=== PATIENT | female | born 1940 | race Caucasian/White ===

== ENCOUNTER 2019-04-10 10:21 | Inpatient (IN) | payer OTHER, BC ==
--- NOTE | 2019-04-10 14:04 | R.PREADM ---
SCREENING DATE AND TIME 04/10/2019 11:39 (LOOP TACKER) ANTICIPATED REHAB ADMISSION DATE 04/12/2019 REFERRING FACILITY [facility] REFERRAL DATE AND TIME 04/10/2019 11:39 (LOOP TACKER) ACUTE ADMIT DATE 04/07/2019 Previous Rehabilitation(s): No. REFERRING PHYSICIAN Ryland Feldman REHAB FACILITY [facility] CLINICAL LIAISON Ana Luisa German PHYSICIAN REVIEWER Dr. Vance Vega M.D. [id number] [id number] NAME SHAYY LEAL [address]ESS [address] [place]IP [address] DATE OF 1940 AGE 78 SSN# [id number] GENDER female MARITAL STATUS RACE white ADMIT FROM 02 - [facility] PRE-HOSPITAL LIVING SETTING 01 - Home (private home/apt. board/care, assisted living, shelter, transitional living) HOME TYPE AND DETAILS Type of home: single family house # of steps within the residence: 0 # of levels in the residence: 1 # of steps to enter the residence: 0 PRE-HOSPITAL LIVING WITH Alone FAMILY SUPPORT Yes PRIMARY FAMILY CONTACT NAME Nissa Gnun PRIMARY FAMILY CONTACT PHONE PHONE PRIMARY FAMILY CONTACT ON ADM.? no IS PRIMARY FAMILY CONTACT AUTH. REP.? no 1ST EMERGENCY CONTACT Nissa Gunn 1ST CONTACT PHONE PHONE 1ST CONTACT ON ADM. no IS 1ST CONTACT AUTH. REP.? no PHONE 2ND CONTACT ON ADM.? no PATIENT EMPLOYMENT STATUS Retired (for age) PATIENT EMPLOYER No Employer PAYOR INFORMATION: 1ST PAYOR NAME MEDICARE 1ST PAYOR PHONE [phone] 1ST PAYOR INJURY/ILLNESS DUE TO ACCIDENT? No ANOTHER GREEN PARTY RESPONSIBLE? No PRIMARY REHAB/ACUTE DIAGNOSIS: .Osteoarthritis, Right Hip ONSET DATE 04/07/2019 REHAB IMPAIRMENT CATEGORY (ALEX): 12 Osteoarthritis (Osteo) does NOT meet 60% rule PRIMARY DIAGNOSIS-RELATED SURGERIES: Right Total Hip Replacement COMORBID REHAB/ACUTE DIAGNOSES: - N/A HTN Hypothyroidism IBS Insomnia Osteoporosis Osteoarthritis Seasonal Allergy MRSA INTERVENTIONS: - Osteoporosis Medications Safety - Osteoarthritis Energy conservation Exercise Joint Protection Medications Pain management RISK FOR COMPLICATIONS: - Osteoporosis Falls Fractures (pathological) - Osteoarthritis Falls SUMMARY OF ACUTE HOSPITALIZATION: Pt. is a 78 yo Right-handed white female. On 04/07/2019 she was admitted to [facility] with diagnosis .Osteoarthritis, Right Hi p. Her impairment category is Arthritis 06 - Osteoarthritis (06.2). Pre-morbidly, Pt. was independent/mod-I in Locomotion, Safety Awareness, Balance, Social Cognition, T ransfers Control, Sphincter Control, Self-Care, Communication, and Endurance; and she had good Locomo tion, Safety Awareness, Balance, Social Cognition, Transfers Control, Sphincter Control, Self-Care, C ommunication, and Endurance. Currently, she has deficits of Locomotion, Safety Awareness, Balance, Social Cognition, Transfers Con trol, Self-Care, and Endurance. Pt. is now referred to [facility] for acute in-patient rehabilitation in order to maximize patient's functional independence in activities of daily living, strength, ROM, and mobi lity. Patient has realistic goal of being discharged at assistance level 6-Saida to reside at Home with Fam estefani/Relatives. Shayy Leal is an 78 year old female that lives alone in a single juan home. She was independent with ADLs and IADLs. On 04/07/2019, patient was scheduled to have Right total hip replacement because of worsening hip pain and was admitted to [facility] and treated. She is now medically stable but in need of 24-h our nursing, doctor supervision and oversite while receiving participate in 3hours of therapy a day/15 hours per week and receive care with an intensive interdisciplinary approach. PAST MEDICAL HISTORY HTN Hypothyroidism IBS Insomnia MRSA Osteoarthritis Osteoporosis Seasonal Allergy PAST SURGICAL HISTORY: TONSILLECTOMY HYSTERECTOMY GALL BLADDER REMOVAL Cyst removal HERNIA REPAIR MEDICATION ALLERGIES: Erythromycin Levofloxacin Penicillin Meperidine HCl Sulfa ENVIRONMENTAL ALLERGIES: Shellfish - Substance Allergies None Known - Other Allergies None Known CODE STATUS: Full code WEIGHT/HEIGHT/BMI: WEIGHT 129.8 lbs HEIGHT 5' 5" BMI 21.5 DIET: - Diet Type Regular - Diet - Solid Texture Regular - Diet - Liquid Texture Regular - Tube Feed N/A SKIN DIAGRAM: Incision on Right upper leg; extent - small; stage - NS(Not Stageable). Treatment - Per Physician's O rders. REVIEW OF SYSTEMS: - Gen Alert and awake Lying in bed No apparent distress Oriented to: person, time, and place - Vital Signs Temperature: 98.0 F SBP/DBP: 131/64 Pulse: 81 Resp: 18 Vital signs stable, afebrile - CVS RRR VITAL SIGNS Temperature: 98.0 F SBP/DBP: 131/64 Pulse: 81 Resp: 18 Vital signs stable, afebrile MEDICATIONS/TREATMENT: Other- See attached MAR (Medication Administration Record). CURRENT SPHINCTER CONTROL: Pre-hospital bladder status: continent # of bladder accidents in the last 7 days prior to screenin Pre-hospital bowel status: continent # of bowel accidents in the last 7 days prior to screenin Last Bowel Movement Date: CURRENT LOCOMOTION STATUS: distance traveled in wheelchair 0 feet distance walked 5 feet DETAILED CURRENT FUNCTIONAL STATUS: - Bladder accident frequency: Ind - No accidents in the past 7 days - Bowel accident frequency: Ind - No accidents in the past 7 days - Walking score based on distance walked: 0(N/A) score based on distance walked: 1(<=50ft) - Wheelchair score based on distance traveled: 0(N/A) QI SCORES: - Self-Care A. Eating 05-Setup or clean-up assistance B. Oral hygiene 05-Setup or clean-up assistance C. Toileting hygiene 03-Partial/moderate assistance E. Shower/bathe self 03-Partial/moderate assistance F. Upper body dressing 04-Supervision or touching assistance G. Lower body dressing 02-Substantial/maximal assistance H. Putting on/taking off footwear 02-Substantial/maximal assistance - Mobility A. Roll left and right 03-Partial/moderate assistance B. Sit to lying 03-Partial/moderate assistance C. Lying to sitting on side of bed 03-Partial/moderate assistance D. Sit to stand 03-Partial/moderate assistance E. Chair/kcf-hy-espae transfer 03-Partial/moderate assistance F. Toilet transfer 03-Partial/moderate assistance G. Car transfer 88-Not attempted due to medical condition or safety concerns I. Walk 10 feet 02-Substantial/maximal assistance J. Walk 50 feet with two turns 88-Not attempted due to medical condition or safety concerns K. Walk 150 feet 88-Not attempted due to medical condition or safety concerns L. Walking 10 feet on uneven surfaces 88-Not attempted due to medical condition or safety concerns M. 1 step (curb) 88-Not attempted due to medical condition or safety concerns N. 4 steps 88-Not attempted due to medical condition or safety concerns O. 12 steps 88-Not attempted due to medical condition or safety concerns P. Picking up object 88-Not attempted due to medical condition or safety concerns R. Wheel 50 feet with two turns 88-Not attempted due to medical condition or safety concerns S. Wheel 150 feet 88-Not attempted due to medical condition or safety concerns - Bladder and Bowel Bladder continence 0-Always continent Bowel continence 0-Always continent - Endurance Poor - Balance Poor - Safety Awareness Fair CURRENT FUNC. DEFICITS: Self-Care, Mobility, Endurance, Balance, and Safety Awareness CURRENT / PREVIOUS ASSISTIVE DEVICES: 3-in-1 Commode [facility] Bed Raised Toilet Rolling Walker Shower Chair Straight Cane Tub Bench Wheelchair HISTORY OF FALLS. HAS THE PATIENT HAD TWO OR MORE FALLS IN THE PAST YEAR OR ANY FALL WITH INJURY IN T HE PAST YEAR?: No PRIOR SURGERY. DID THE PATIENT HAVE MAJOR SURGERY DURING THE 100 DAYS PRIOR TO ADMISSION?: No THERAPY NOTES FROM ACUTE CARE: Attached. SPECIAL NEEDS: - Safety Concerns Skin breakdown precautions needed due to skin breakdown risk PATIENT NEEDS ACTIVE AND ONGOING THERAPEUTIC INTERVENTION OF MULTIPLE THERAPY DISCIPLINES, INCLUDING: - Orthotics/Prosthetics Orthotic Evaluation. Splinting/Casting. - Dietary and Nutrition Adequate Nutrition. Nutritional Education. Nutritional Supplements. PATIENT NEEDS CLOSE MEDICAL SUPERVISION BY A REHABILITATION PHYSICIAN FOR: Coordination of Treatment Team Medical and Co-Morbidity Management Post-Op Complications Sleep Problems Wound Care PATIENT REQUIRES 24X7 REHAB NURSING FOR MEDICAL AND FUNCTIONAL MGT. OF THE FOLLOWING DEFICITS: Disease Management Medication Management Patient/Family Education Providing Safe Environment Skin Integrity PATIENT REQUIRES INTENSIVE, COORDINATED INTERDISCIPLINARY APPROACH TO REHAB: Arranging Home Equipment/Services Discharge Planning Family Intervention/Training Solution Designer/Case Management PATIENT REHAB POTENTIAL: Shayy LEAL is able and expected to receive 3 hours of individualized therapy daily on at least 5 o f every 7 days Shayy LEAL's prognosis for significant practical improvement within a reasonable period of time ap pears Good Expected level of measurable improvement will be of a practical value to Shayy LEAL's functional c apacity or adaptations to impairments Has a viable Discharge Plan Medically appropriate; condition is sufficiently stable to participate in intensive rehab program DISCHARGE PLAN: - Estimated Length of Stay (days) 13. - Consensus on plan Discharge plan has been discussed with primary caregiver. Patient/Family is in agreement with the john n. Primary caregiver is in agreement with the plan. - Patient/Family Goals Return home with assistance. - Planned Living Setting Upon Discharge Home, to live with Family/Relatives. Transitional Living. Primary caregiver: Pt self. RECOMMENDED CARE LEVEL: IRF RECOMMENDATION DETAILS: Recommended Admission to Comprehensive Rehabilitation Program to Increase Functional [place] SCREENER'S COMPLETENESS CONFIRMATION: - Screening Confirmation The patient data collection on this preadmission screening form is finished PHYSICIANS REVIEW AND ADMISSION DETERMINATION Admit - Based on my review of the Pre-Admission Screening results, in my medical judgment and experie nce, I concur with the findings and recommend admission to [facility], as this patient requires an IRF level of care. SIGNATURE PANEL: Clinical Liaison - [electronically] signed by Ana Luisa German on 04/10/2019 at 12:28 (LOOP TACKER) Physician Reviewer - [electronically] signed by Dr. Vance Vega M.D. on 04/10/2019 at 14:03 (LOOP TACKER )
[2019-04-10] MEDS ORDERED: CETIRIZINE HCL 5 MG TABLET PO PRN (17:04)
[2019-04-10] MEDS ORDERED: DIPHENHYDRAMINE 25 MG TAB/CAP PO PRN (17:09)
[2019-04-10] MEDS ORDERED: SIMETHICONE 80 MG TAB PO PRN (17:09)
[2019-04-10] MEDS ORDERED: DICYCLOMINE HCL 10 MG CAP PO PRN (17:09)
[2019-04-10] MEDS: ENOXAPARIN 40 MG/0.4 ML SQ SCH (18:00)
[2019-04-10] MEDS: HYDROCODONE/APAP 7.5/325 MG TAB PO PRN (18:58)
[2019-04-10] MEDS ORDERED: CIPROFLOXACIN HCL 500 MG TAB PO SCH (20:00)
[2019-04-10] MEDS: GABAPENTIN 100 MG CAP PO SCH (20:32)
[2019-04-10] MEDS: FERROUS SULFATE 325 MG TAB PO SCH ×2 (20:32→21:00)
[2019-04-10] MEDS: DOCUSATE NA 100 MG CAP PO PRN (20:33)
[2019-04-10] MEDS: ALPRAZOLAM 0.25 MG TABLET PO SCH (20:33)
[2019-04-11 01:27] LABS: Urine Appearance CLEAR; Urine Bilirubin NEGATIVE (NEG); Urine Blood NEGATIVE (NEG); Urine Color YELLOW; Urine Glucose NEGATIVE (NEG); Urine Protein NEGATIVE (NEG); Urine Specific Gravity <=1.005 (1.005-1.030); Urine Urobilinogen 0.2 mg/dL (0.2-1.0)
[2019-04-11 02:00] LABS: Urine Bacteria <20 /HPF (<20); Urine Culture Reflex Order NOT NEEDED; Urine RBC NONE SEEN /HPF (NONE SEEN)
[2019-04-11] MEDS: LEVOTHYROXINE SOD 0.075 MG TAB PO SCH (06:44)
[2019-04-11 06:48] LABS: Absolute Lymphocytes (CBC) 1.3 K/uL (0.7-4.9); Basophils % 0.6 % (0-1.3); Hematocrit 28.9 % (36.0-45.0); Lymphocytes % 15.5 % (15.3-44.8); MPV 7.2 fL (7.6-11.3)
[2019-04-11 07:13] LABS: Albumin 2.2 g/dL (3.4-5.0); BUN Blood Urea Nitrogen 7 mg/dL (7-18); Bicarbonate 27 mmol/L (21-32); Glucose Level 85 mg/dL (74-106); Magnesium 2.4 mg/dL (1.8-2.4); Potassium 4.3 mmol/L (3.5-5.1); Prealbumin 8.4 mg/dL (20-40); Sodium Level 139 mmol/L (136-145)
[2019-04-11] MEDS ORDERED: RALOXIFENE HCL 60 MG TAB PO SCH (08:00)
[2019-04-11] MEDS: HYDROCODONE/APAP 7.5/325 MG TAB PO PRN ×3 (08:22→21:49)
[2019-04-11] MEDS: LACTOBACILLUS/ACIDOPHILUS TAB PO SCH (08:24)
[2019-04-11] MEDS: AMLODIPINE 5 MG TAB PO SCH (08:24)
[2019-04-11] MEDS: GABAPENTIN 100 MG CAP PO SCH ×2 (08:24→20:37)
[2019-04-11] MEDS: ENOXAPARIN 40 MG/0.4 ML SQ SCH (08:24)
[2019-04-11] MEDS: PANTOPRAZOLE 40MG TABLET PO SCH ×2 (08:25→17:23)
[2019-04-11] MEDS: FOLBIC 1 TAB PO SCH (08:25)
[2019-04-11] MEDS: MULTIVITAMIN TAB PO SCH (08:25)
[2019-04-11] MEDS: FERROUS SULFATE 325 MG TAB PO SCH (08:27)
[2019-04-11] MEDS: CALCIUM CARB 500MG/VIT D 200 IU TAB PO SCH (08:27)
[2019-04-11] MEDS: DOCUSATE NA 100 MG CAP PO PRN (10:10)
[2019-04-11] MEDS: CODEINE 30MG/APAP 300MG TAB PO PRN (10:10)
[2019-04-11] MEDS ORDERED: MAGNESIUM HYDROXIDE 8% 30 ML PO ONE (12:00)
--- NOTE | 2019-04-11 16:14 | FAST ---
ENCOUNTER DATE AND TIME: 04/11/2019 08:00 (MAKEUP INSTRUCTOR) NAME FARZAD CAVAZOS DATE OF : 1940 DATE OF ADMISSION: 04/10/2019 15:46 (MAKEUP INSTRUCTOR) PHONE: AGE: 78 N# [id number] GENDER: Female ENCOUNTER PHYSICIAN: Dr. Vance Vega M.D. ADMISSION DIAGNOSIS: - Arthritis 06 - Osteoarthritis (06.2) .Osteoarthritis, Right Hip. EATING: EATING - STEP 1: Does the patient complete the activity by him/herself with no assistance (physical, verbal/nonverbal cueing, setup/clean-up)? Yes. 1. [id number] ADMISSION PERFORMANCE: Independent CODE: 06 ORAL HYGIENE: ORAL HYGIENE - STEP 1: Does the patient complete the activity by him/herself with no assistance (physical, verbal/nonverbal cueing, setup/clean-up)? Yes. 1. [id number] ADMISSION PERFORMANCE: Independent CODE: 06 TOILETING HYGIENE: Not assessed/no information CODE: - BATHING: Not attempted due to medical condition or safety concerns CODE: 88 DRESSING - UPPER BODY: DRESSING - UPPER BODY - STEP 1: Does the patient complete the activity by him/herself with no assistance (physical, verbal/nonverbal cueing, setup/clean-up)? No. DRESSING - UPPER BODY - STEP 2: Does the patient need only setup/clean-up assistance from one helper? Yes. 1. [id number] ADMISSION PERFORMANCE: Setup or clean-up assistance CODE: 05 DRESSING - LOWER BODY: DRESSING - LOWER BODY - STEP 1: Does the patient complete the activity by him/herself with no assistance (physical, verbal/nonverbal cueing, setup/clean-up)? No. DRESSING - LOWER BODY - STEP 2: Does the patient need only setup/clean-up assistance from one helper? No. DRESSING - LOWER BODY - STEP 3: Does the patient need only verbal/nonverbal cueing or touching/steadying/contact guard assistance fro m one helper? No. DRESSING - LOWER BODY - STEP 4: Does the patient need physical assistance - for example lifting or trunk support from one helper - wi th the helper providing less than half of the effort? No. DRESSING - LOWER BODY - STEP 5: Does the patient need physical assistance - for example lifting or trunk support from one helper - wi th the helper providing more than half of the effort? No. DRESSING - LOWER BODY - STEP 6: Does the helper provide all of the effort? OR Is the assistance of two or more helpers required to co mplete the activity? Yes. 1. [id number] ADMISSION PERFORMANCE: Dependent CODE: 01 PUTTING ON/TAKING OFF FOOTWEAR: FOOTWEAR - STEP 1: Does the patient complete the activity by him/herself with no assistance (physical, verbal/nonverbal cueing, setup/clean-up)? No. FOOTWEAR - STEP 2: Does the patient need only setup/clean-up assistance from one helper? No. FOOTWEAR - STEP 3: Does the patient need only verbal/nonverbal cueing or touching/steadying/contact guard assistance fro m one helper? No. FOOTWEAR - STEP 4: Does the patient need physical assistance - for example lifting or trunk support from one helper - wi th the helper providing less than half of the effort? No. FOOTWEAR - STEP 5: Does the patient need physical assistance - for example lifting or trunk support from one helper - wi th the helper providing more than half of the effort? No. FOOTWEAR - STEP 6: Does the helper provide all of the effort? OR Is the assistance of two or more helpers required to co mplete the activity? Yes. 1. [id number] ADMISSION PERFORMANCE: Dependent CODE: 01 DOES THE PATIENT USE A WHEELCHAIR/SCOOTER? CODE: EXPR INDICATE THE TYPE OF WHEELCHAIR/SCOOTER USED: CODE: EXPR INDICATE THE TYPE OF WHEELCHAIR/SCOOTER USED: CODE: EXPR BLADDER AND BOWEL: CODE: EXPR CODE: EXPR SIGNATURE PANEL: The following modified sections: 1. [id number] Admission Performance, 1. [id number] Admission Performance, 1. [id number] Admission Performance, 1. [id number] Admission Performance, 1. [id number] Admission Performance were [electronically] signed by hSilpa Ruffin OT on SatApr 11 2019 16:13:32 GMT-0600 ([facility])
[2019-04-11] MEDS: RIVAROXABAN 10 MG TABLET PO SCH (16:58)
[2019-04-11] MEDS: DOCUSATE NA/SENNA CONC 1 TAB PO SCH (20:37)
[2019-04-11] MEDS: ALPRAZOLAM 0.25 MG TABLET PO SCH (20:37)
--- NOTE | 2019-04-11 22:10 | HP ---
Date of Admission: 04/11/2019 Patient was seen this morning for this hospital admission. Reason For Admission: For rehab therapy after hip surgery. History Of Present Illness: 78-year-old female patient who had right hip replacement surgery done in [place] on Saturday of this week and she was brought in to our rehab floor yesterday evening for this rehab admission. Patient's postoperative course remained remarkable for need for blood transfusion and antibiotic, Cipro, probably for urinary tract infection. She did have a Antonio catheter after surgery, which was removed within a day or so as she tells me. Her last bowel movement was on Saturday, which was day before surgery. After that , she has not had any bowel movement. Denies any abdominal pain, nausea, vomiting. No blood in stool. No blood in urine. No dysuria. Her pain is under good control with pain medication. Allergies: AZITHROMYCIN CAUSING RASH, ERYTHROMYCIN CAUSING RASH, PENICILLIN CAUSING RASH, SULFA CAUSING RASH, FOSAMAX AND ACTONEL CAUSING STOMACH UPSET, AND DEMEROL, HER ARMS TURN RED. Medications: Current medication list reviewed. At home, she takes alprazolam 0.25 mg at bedtime as needed for sleep, Evista 60 mg p.o. daily, omeprazole 40 mg p.o. daily, levothyroxine 75 mcg p.o. daily, dicyclomine 10 mg 1 capsule every 6 hours as needed for stomach cramps, Caltrate plus D 1 tablet by mouth 2 times a day, Folbic 1 tablet by mouth daily. Review of Systems: Musculoskeletal: Hip pain. GI: Constipation. All other systems reviewed and negative. 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 Past Surgical History: Significant for tonsillectomy, thyroidectomy, hiatal hernia repair, cholecystectomy, appendectomy, hysterectomy. Family History: Father had lymphoma. Mother, hypertension and osteoporosis. Brother, coronary artery disease and diabetes. Sister with hypertension. Social History: Negative for smoking and alcohol use. Physical Examination: Vital Signs: This morning, temperature 98.2, respiratory rate 16, blood pressure 140/51, oxygen saturation 100%, height 5 feet 5 inches, weight 147 pounds. General: Awake, alert, oriented, not in distress. HEENT: Head atraumatic, normocephalic. Conjunctivae nonerythematous. Sclerae white. Mouth, no thrush or edema noted. Ears/Nose, no mass, lesion, discharge noted. Neck: Supple. No JVD, lymph nodes, bruit, thyromegaly noted. Lungs: Bilateral good equal air entry. Clear to auscultation. No rhonchi. No rales. Heart: Normal heart sounds, no murmur or gallop. Abdomen: Soft, bowel sounds normal. No guarding, rigidity, tenderness, mass, hepatosplenomegaly, distention, or bruit noted. Extremities: No leg edema. No calf tenderness. Skin: No rash, ulcer, cellulitis. Lymphatics: No lymph node enlargement in neck, supraclavicular, infraclavicular region. Neuro: No focal neurological deficit. Chest: Unremarkable. External Genitalia: Deferred. Rectal: Deferred. Laboratory Data: White count 8.4, hemoglobin 9.9, platelets 248. Sodium 139, potassium 4.3, chloride 108, bicarb 27, BUN 7, creatinine 0.61, glucose 85, magnesium 2.4. Impression: 1. Anemia due to acute blood loss. 2. Constipation. 3. Hypothyroidism, postsurgical. 4. Gastroesophageal reflux disease. 5. Diverticulosis. 6. Osteoarthritis, multiple sites. 7. Osteoporosis. 8. Primary insomnia. 9. Hyperlipidemia. Plan: Admit patient to hospital for further evaluation and management of this problem. Patient is going to be admitted to rehab floor. We will consult Dr. Vega, who will manage patient's physical therapy. We will continue medications per order. Patient takes Evista at home, which I will discontinue it at present time because of less than normal activity in the hospital increases risk of blood clot and continuation of Evista on top of that will increase risk of blood clot further, so it will be best to discontinue Evista while in the hospital. After her discharge from the hospital, she will be allowed to restart it. DVT prophylaxis will be given using Xarelto 10 mg daily as of this evening and pain medications will be continued. We will give Senokot -S 2 tablets by mouth 2 times a day and give 1 dose of milk of magnesia today. Patient reported that she was getting iron supplement in [place] and she could not tolerate. It caused lot of stomach upset, pain, and nausea. So, we will discontinue iron supplement and if necessary, consider IV iron therapy depending on her hemoglobin test results, which we will monitor while in the hospital here. CELSA/SABRINA Voice ID: [id number] MTDD
[2019-04-12] MEDS: PANTOPRAZOLE 40MG TABLET PO SCH ×2 (06:30→16:27)
[2019-04-12] MEDS: LEVOTHYROXINE SOD 0.075 MG TAB PO SCH (06:30)
[2019-04-12] MEDS: HYDROCODONE/APAP 7.5/325 MG TAB PO PRN ×2 (08:17→19:08)
[2019-04-12] MEDS: MULTIVITAMIN TAB PO SCH (08:18)
[2019-04-12] MEDS: DOCUSATE NA/SENNA CONC 1 TAB PO SCH ×2 (08:18→21:28)
[2019-04-12] MEDS: AMLODIPINE 5 MG TAB PO SCH (08:19)
[2019-04-12] MEDS: LACTOBACILLUS/ACIDOPHILUS TAB PO SCH (08:19)
[2019-04-12] MEDS: CALCIUM CARB 500MG/VIT D 200 IU TAB PO SCH (08:20)
[2019-04-12] MEDS: GABAPENTIN 100 MG CAP PO SCH ×2 (08:20→21:28)
[2019-04-12] MEDS: FOLBIC 1 TAB PO SCH (08:20)
[2019-04-12] MEDS ORDERED: BISACODYL 10 MG RECTAL SUPP PR ONE (16:00)
[2019-04-12] MEDS: RIVAROXABAN 10 MG TABLET PO SCH (16:27)
[2019-04-12] MEDS: ALPRAZOLAM 0.25 MG TABLET PO SCH (21:28)
[2019-04-13] MEDS: PANTOPRAZOLE 40MG TABLET PO SCH ×2 (07:04→16:16)
[2019-04-13] MEDS: LEVOTHYROXINE SOD 0.075 MG TAB PO SCH (07:04)
[2019-04-13] MEDS: CALCIUM CARB 500MG/VIT D 200 IU TAB PO SCH (08:00)
[2019-04-13] MEDS: LACTOBACILLUS/ACIDOPHILUS TAB PO SCH (08:33)
[2019-04-13] MEDS: AMLODIPINE 5 MG TAB PO SCH (08:34)
[2019-04-13] MEDS: MULTIVITAMIN TAB PO SCH (08:34)
[2019-04-13] MEDS: FOLBIC 1 TAB PO SCH (08:34)
[2019-04-13] MEDS: HYDROCODONE/APAP 7.5/325 MG TAB PO PRN ×3 (08:35→16:16)
[2019-04-13] MEDS: DOCUSATE NA/SENNA CONC 1 TAB PO SCH ×2 (08:35→20:47)
[2019-04-13] MEDS: GABAPENTIN 100 MG CAP PO SCH ×2 (09:45→20:46)
--- NOTE | 2019-04-13 16:01 | FAST ---
SHIFT START DATE/TIME: 04/13/2019 07:00 (COMMAND AND CONTROL) SHIFT END DATE/TIME: 04/13/2019 19:00 (COMMAND AND CONTROL) NAME FARZAD CAVAZOS DATE OF : 1940 DATE OF ADMISSION: 04/10/2019 15:46 (COMMAND AND CONTROL) PHONE: AGE: 78 N# [id number] GENDER: Female ENCOUNTER PHYSICIAN: Dr. Vance Vega M.D. ADMISSION DIAGNOSIS: - Arthritis 06 - Osteoarthritis (06.2) .Osteoarthritis, Right Hip. EATING: EATING - STEP 1: Does the patient complete the activity by him/herself with no assistance (physical, verbal/nonverbal cueing, setup/clean-up)? Yes. 1. [id number] ADMISSION PERFORMANCE: Independent CODE: 06 ORAL HYGIENE: ORAL HYGIENE - STEP 1: Does the patient complete the activity by him/herself with no assistance (physical, verbal/nonverbal cueing, setup/clean-up)? Yes. 1. [id number] ADMISSION PERFORMANCE: Independent CODE: 06 TOILETING HYGIENE: TOILETING HYGIENE - STEP 1: Does the patient complete the activity by him/herself with no assistance (physical, verbal/nonverbal cueing, setup/clean-up)? No. TOILETING HYGIENE - STEP 2: Does the patient need only setup/clean-up assistance from one helper? No. TOILETING HYGIENE - STEP 3: Does the patient need only verbal/nonverbal cueing or touching/steadying/contact guard assistance fro m one helper? Yes. 1. [id number] ADMISSION PERFORMANCE: Supervision or touching assistance CODE: 04 BATHING: Not assessed/no information CODE: - DRESSING - UPPER BODY: Not assessed/no information CODE: - DRESSING - LOWER BODY: Not assessed/no information CODE: - PUTTING ON/TAKING OFF FOOTWEAR: FOOTWEAR - STEP 1: Does the patient complete the activity by him/herself with no assistance (physical, verbal/nonverbal cueing, setup/clean-up)? No. FOOTWEAR - STEP 2: Does the patient need only setup/clean-up assistance from one helper? No. FOOTWEAR - STEP 3: Does the patient need only verbal/nonverbal cueing or touching/steadying/contact guard assistance fro m one helper? No. FOOTWEAR - STEP 4: Does the patient need physical assistance - for example lifting or trunk support from one helper - wi th the helper providing less than half of the effort? Yes. 1. [id number] ADMISSION PERFORMANCE: Partial/moderate assistance CODE: 03 SIT TO LYING: SIT TO LYING - STEP 1: Does the patient complete the activity by him/herself with no assistance (physical, verbal/nonverbal cueing, setup/clean-up)? No. SIT TO LYING - STEP 2: Does the patient need only setup/clean-up assistance from one helper? No. SIT TO LYING - STEP 3: Does the patient need only verbal/nonverbal cueing or touching/steadying/contact guard assistance fro m one helper? Yes. 1. [id number] ADMISSION PERFORMANCE: Supervision or touching assistance CODE: 04 LYING TO SITTING: LYING TO SITTING ON SIDE OF BED - STEP 1: Does the patient complete the activity by him/herself with no assistance (physical, verbal/nonverbal cueing, setup/clean-up)? No. LYING TO SITTING ON SIDE OF BED - STEP 2: Does the patient need only setup/clean-up assistance from one helper? No. LYING TO SITTING ON SIDE OF BED - STEP 3: Does the patient need only verbal/nonverbal cueing or touching/steadying/contact guard assistance fro m one helper? Yes. 1. [id number] ADMISSION PERFORMANCE: Supervision or touching assistance CODE: 04 SIT TO STAND: SIT TO STAND - STEP 1: Does the patient complete the activity by him/herself with no assistance (physical, verbal/nonverbal cueing, setup/clean-up)? No. SIT TO STAND - STEP 2: Does the patient need only setup/clean-up assistance from one helper? No. SIT TO STAND - STEP 3: Does the patient need only verbal/nonverbal cueing or touching/steadying/contact guard assistance fro m one helper? Yes. 1. [id number] ADMISSION PERFORMANCE: Supervision or touching assistance CODE: 04 TRANSFERS: BED, CHAIR: CHAIR/[id number] TRANSFER - STEP 1: Does the patient complete the activity by him/herself with no assistance (physical, verbal/nonverbal cueing, setup/clean-up)? No. CHAIR/[id number] TRANSFER - STEP 2: Does the patient need only setup/clean-up assistance from one helper? No. CHAIR/[id number] TRANSFER - STEP 3: Does the patient need only verbal/nonverbal cueing or touching/steadying/contact guard assistance fro m one helper? Yes. 1. [id number] ADMISSION PERFORMANCE: Supervision or touching assistance CODE: 04 TRANSFER TOILET: TOILET TRANSFER - STEP 1: Does the patient complete the activity by him/herself with no assistance (physical, verbal/nonverbal cueing, setup/clean-up)? No. TOILET TRANSFER - STEP 2: Does the patient need only setup/clean-up assistance from one helper? No. TOILET TRANSFER - STEP 3: Does the patient need only verbal/nonverbal cueing or touching/steadying/contact guard assistance fro m one helper? Yes. 1. [id number] ADMISSION PERFORMANCE: Supervision or touching assistance CODE: 04 TRANSFERS: CAR: Not assessed/no information CODE: - WALK 10 FEET: Not assessed/no information CODE: - 1 STEP (CURB): Not assessed/no information CODE: - PICKING UP OBJECT: Not assessed/no information CODE: - DOES THE PATIENT USE A WHEELCHAIR/SCOOTER? Q1. DOES THE PATIENT USE A WHEELCHAIR/SCOOTER?: Yes CODE: 1 WHEEL 50 FEET WITH TWO TURNS: WHEEL 50 FEET WITH TWO TURNS - STEP 1: Does the patient complete the activity by him/herself with no assistance (physical, verbal/nonverbal cueing, setup/clean-up)? No. WHEEL 50 FEET WITH TWO TURNS - STEP 2: Does the patient need only setup/clean-up assistance from one helper? No. WHEEL 50 FEET WITH TWO TURNS - STEP 3: Does the patient need only verbal/nonverbal cueing or touching/steadying/contact guard assistance fro m one helper? Yes. 1. [id number] ADMISSION PERFORMANCE: Supervision or touching assistance CODE: 04 INDICATE THE TYPE OF WHEELCHAIR/SCOOTER USED: RR1. INDICATE THE TYPE OF WHEELCHAIR/SCOOTER USED.: Manual CODE: 1 WHEEL 150 FEET: Not assessed/no information CODE: - INDICATE THE TYPE OF WHEELCHAIR/SCOOTER USED: SS1. INDICATE THE TYPE OF WHEELCHAIR/SCOOTER USED.: Manual CODE: 1 BLADDER AND BOWEL: H350. BLADDER CONTINENCE (3-DAY ASSESSMENT PERIOD): Always continent (no documented incontinence) CODE: 0 H400. BOWEL CONTINENCE (3-DAY ASSESSMENT PERIOD): Always continent CODE: 0 SIGNATURE PANEL: The following modified sections: 1. [id number] Admission Performance, 1. [id number] Admission Performance, 1. PO1753C Admission Performance, 1. OO8622h Admission Performance, 1. MA7536o Admission Performance, 1. [id number] Admission Performance, 1. BD5139B Admission Performance, 1. FR5201Z Admission Performance , 1. LL2563S Admission Performance, 1. [id number] Admission Performance, Q1. Does the patient use a whee lchair/scooter?, 1. [id number] Admission Performance, RR1. Indicate the type of wheelchair/scooter used. , Code, SS1. Indicate the type of wheelchair/scooter used., H350. Bladder Continence (3-day assessmen t period), H400. Bowel Continence (3-day assessment period) were [electronically] signed by Sera quick, C.N.AJesus on SatApr 13 2019 16:00:08 T-0600 (Central Standard Time)
[2019-04-13] MEDS: RIVAROXABAN 10 MG TABLET PO SCH (16:15)
--- NOTE | 2019-04-13 17:11 | R.HP ---
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 board/care, assisted living, jail, transitional living) PRE-HOSPITAL LIVING WITH Alone ENCOUNTER PHYSICIAN: Dr. Vance Vega M.D. 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 is a 78 yo Right-handed white female. On 04/07/2019 she was admitted to [facility] with diagnosis .Osteoarthritis, Right Hi p. Her impairment category is Arthritis 06 - Osteoarthritis (06.2). Pre-morbidly, Pt. was independent/mod-I in Locomotion, Safety Awareness, Balance, Social Cognition, T ransfers Control, Sphincter Control, Self-Care, Communication, and Endurance; and she had good Locomo tion, Safety Awareness, Balance, Social Cognition, Transfers Control, Sphincter Control, Self-Care, C ommunication, and Endurance. Currently, she has deficits of Locomotion, Safety Awareness, Balance, Social Cognition, Transfers Con trol, Self-Care, and Endurance. Pt. is now referred to [facility] for acute in-patient rehabilitation in order to maximize patient's functional independence in activities of daily living, strength, ROM, and mobi lity. Patient has realistic goal of being discharged at assistance level 6-Saida to reside at Home with Fam estefani/Relatives. Shayy Cavazos is an 78 year old female that lives alone in a single juan home. She was independent with ADLs and IADLs. On 04/07/2019, patient was scheduled to have Right total hip replacement because of worsening hip pain and was admitted to [facility] and treated. She is now medically stable but in need of 24-h our nursing, doctor supervision and oversite while receiving participate in 3hours of therapy a day/15 hours per week and receive care with an intensive interdisciplinary approach. MEDICATION ALLERGIES: Erythromycin Levofloxacin Penicillin Meperidine HCl Sulfa ENVIRONMENTAL ALLERGIES: Shellfish - Substance Allergies None Known - Other Allergies None Known PAST MEDICAL HISTORY: HTN Hypothyroidism IBS Insomnia MRSA Osteoarthritis Osteoporosis Seasonal Allergy PAST SURGICAL HISTORY: TONSILLECTOMY HYSTERECTOMY GALL BLADDER REMOVAL Cyst removal HERNIA REPAIR FAMILY HISTORY: Family history is not contributory. SOCIAL HISTORY: - Home Living Alone REVIEW OF SYSTEMS: - Gen No Chills Fatigue No Fever - Eyes No Double Vision No itchiness - ENMT No Difficulty Swallowing - CVS No Chest Discomfort No Chest Pain Fatigue No Weight Gain - Resp No Cough No Shortness of Breath - GI Continent No Abdominal Pain No Constipation No Diarrhea - Continent No Kidney Pain No Painful Urination No Urinary Urgency - MSK No Joint Pain Muscle Cramps No Stiffness - Skin No Itching No Rash No Suspicious Lesions - Neuro Coordination Difficulty No Difficulty with Concentration No Memory Loss No Seizures Weakness - Psych No Anxiety No Depression No HIV Exposure No Persistent Infections No Seasonal Allergies - Endo No Cold/Heat Intolerance No Excessive Hunger No Excessive Thirst No Excessive Urination PHYSICAL EXAM - Gen Alert and awake Lying in bed No apparent distress Oriented to: person, time, and place - Skin No skin breakdown. Normacephalic - Eyes No abnormalities - ENMT No abnormalities - Neck No abnormalities - CVS RRR - Chest Clear - Abd Soft - GI Non distended Deferred - No abnormalities - Ext Mild postoperative edema in the right lower extremity Right hip surgical site has good hemostasis. - MSK 4+/5 weakness in right lower extremity - Neuro 4/5 strength right lower extremity. - Psych No abnormalities VITAL SIGNS Temperature: 98.0 F SBP/DBP: 143/54 Pulse: 76 Resp: 16 NURSING: - Shower allowing shower ACTIVITIES OOB only with supervision QI SCORES: - Self-Care A. Eating 05-Setup or clean-up assistance B. Oral hygiene 05-Setup or clean-up assistance C. Toileting hygiene 03-Partial/moderate assistance E. Shower/bathe self 03-Partial/moderate assistance F. Upper body dressing 04-Supervision or touching assistance G. Lower body dressing 02-Substantial/maximal assistance H. Putting on/taking off footwear 02-Substantial/maximal assistance - Mobility A. Roll left and right 03-Partial/moderate assistance B. Sit to lying 03-Partial/moderate assistance C. Lying to sitting on side of bed 03-Partial/moderate assistance D. Sit to stand 03-Partial/moderate assistance E. Chair/kfq-ab-eknyq transfer 03-Partial/moderate assistance F. Toilet transfer 03-Partial/moderate assistance G. Car transfer 88-Not attempted due to medical condition or safety concerns I. Walk 10 feet 02-Substantial/maximal assistance J. Walk 50 feet with two turns 88-Not attempted due to medical condition or safety concerns K. Walk 150 feet 88-Not attempted due to medical condition or safety concerns L. Walking 10 feet on uneven surfaces 88-Not attempted due to medical condition or safety concerns M. 1 step (curb) 88-Not attempted due to medical condition or safety concerns N. 4 steps 88-Not attempted due to medical condition or safety concerns O. 12 steps 88-Not attempted due to medical condition or safety concerns P. Picking up object 88-Not attempted due to medical condition or safety concerns R. Wheel 50 feet with two turns 88-Not attempted due to medical condition or safety concerns S. Wheel 150 feet 88-Not attempted due to medical condition or safety concerns - Bladder and Bowel Bladder continence 0-Always continent Bowel continence 0-Always continent - Endurance Poor - Balance Poor - Safety Awareness Fair CURRENT FUNC. DEFICITS: Self-Care, Mobility, Endurance, Balance, and Safety Awareness MEDICATIONS: - Other See attached MAR (Medication Administration Record) ASSESSMENT: PtJesus is a 78 yo Right-handed white female.On 04/07/2019 she was admitted to [facility] with diagnosis .Osteoarthritis, Right Hip.Her impairment category is Arthritis 06 - Osteoarthritis (06.2).Pre-morbidly, Pt. was independent/mod-I in Locomotion, Safety Awareness, Balance, Social Cogni tion, Transfers Control, Sphincter Control, Self-Care, Communication, and Endurance; and she had good Locomotion, Safety Awareness, Balance, Social Cognition, Transfers Control, Sphincter Control, Self- Care, Communication, and Endurance.Currently, she has deficits of Locomotion, Safety Awareness, Ame ce, Social Cognition, Transfers Control, Self-Care, and Endurance.Pt. is now referred to [facility] for acute in-patient rehabilitation in order to maximize patient's functional i ndependence in activities of daily living, strength, ROM, and mobility.- Rehab Goal Patient has realistic goal of being discharged at assistance level 6-Saida to reside at Home with Fam estefani/Relatives. Shayy Cavazos is an 78 year old female that lives alone in a single juan home. She was independent with ADLs and IADLs. On 04/07/2019, patient was scheduled to have Right total hip replacement because of worsening hip pain and was admitted to [facility] and treated. She is now medically stable but in need of 24-h our nursing, doctor supervision and oversite while receiving participate in 3hours of therapy a day/15 hours per week and receive care with an intensive interdisciplinary approach.REHAB PLAN: - Physical Therapy Gait dysfunction - to improve, our physical therapists will perform initial evaluation of pt's status upon admission and devise an individualized program for Gait Training, and Wheel Chair mobility Inability to transfer - to improve, our physical therapists will perform initial evaluation of pt's s tatus upon admission and devise an individualized program for Bed mobility Need for home safety evaluation - to improve, our physical therapists will perform initial evaluation of pt's status upon admission and devise an individualized program for Home Evaluation Need in caregiver upon discharge - to improve, our physical therapists will perform initial evaluatio n of pt's status upon admission and devise an individualized program for Caregiver Training New precaution - to improve, our physical therapists will perform initial evaluation of pt's status u nneka admission and devise an individualized program for Patient precaution education Edema - to improve, our physical therapists will perform initial evaluation of pt's status upon admi ssion and devise an individualized program for Elevation Training, and Lymphedema Therapy Poor balance - to improve, our physical therapists will perform initial evaluation of pt's status upo n admission and devise an individualized program for Balance Training Poor endurance - to improve, our physical therapists will perform initial evaluation of pt's status u nneka admission and devise an individualized program for Endurance Training Weakness - to improve, our physical therapists will perform initial evaluation of pt's status upon ad mission and devise an individualized program for Aquatic Therapy, Neuromuscular Reeducation, and Stre ngthening Achieving independence - to improve, our physical therapists will perform initial evaluation of pt's status upon admission and devise an individualized program for Community Reintegration Activities - Occupational Therapy ADL deficits - to improve, our occupation therapists will perform initial evaluation of pt's status u nneka admission and devise an individualized program for Bathing, Bed mobility, Community Reintegration , Cooking, Dressing, Eating, Fine Motor Skills, Grooming, Homemaking, Kitchen Mobility, Laundry, Cher ent Education, Safety Awareness, Splinting - Positioning, Transfers(Toilet, Tub, Shower), and Wheel C hair Management Cognitive deficits - to improve, our occupation therapists will perform initial evaluation of pt's st atus upon admission and devise an individualized program for Cognition - orientation Need for family day carer - to improve, our occupation therapists will perform initial evaluation of pt's s tatus upon admission and devise an individualized program for Caregiver Training Weakness - to improve, our occupation therapists will perform initial evaluation of pt's status upon admission and devise an individualized program for Aquatic Therapy, Balance, Endurance, UE ROM, and U E strengthening MEDICAL PLAN: - Diet Type Start Regular - Diet - Liquid Texture Start Regular - Tube Feed Start N/A - Other See attached MAR (Medication Administration Record) - Diet - Solid Texture Regular - Shower shower DISCHARGE PLAN: - Estimated Length of Stay (days) 13. - Consensus on plan Discharge plan has been discussed with primary caregiver. Patient/Family is in agreement with the john n. Primary caregiver is in agreement with the plan. - Patient/Family Goals Return home with assistance. - Planned Living Setting Upon Discharge Home, to live with Family/Relatives. Transitional Living. Primary caregiver: Pt self. 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
--- NOTE | 2019-04-13 17:26 | PAPE ---
PATIENT: [facility] MR# [id number] REFERRING DOCTOR vianey Feldman EVALUATION DATE AND TIME 04/13/2019 17:23 (ICE CREAM DIPPER) NAME FARZAD CAVAZOS DATE OF 1940 AGE 78 PHONE SSN# [id number] GENDER female EVALUATING PHYSICIAN Dr. Vance Vega M.D. ADMISSION DIAGNOSIS: .Osteoarthritis, Right Hip ONSET DATE 04/07/2019 SECONDARY/COMORBID DIAGNOSES TIERED: - N/A HTN Hypothyroidism IBS Insomnia Osteoporosis Osteoarthritis Seasonal Allergy MRSA POST-ADMISSION FUNCTIONAL/MEDICAL STATUS: - Bladder Same accident frequency: Ind - No accidents in the past 7 days - Bowel Same accident frequency: Ind - No accidents in the past 7 days - Walking Same score based on distance walked: 0(N/A) Same score based on distance walked: 1(<=50ft) - Wheelchair Same score based on distance traveled: 0(N/A) STATUS CHANGE EVALUATION: No change in Functional or Medical Status is identified compared with Pre-Admission screening. PATIENT NEEDS CLOSE MEDICAL SUPERVISION BY A REHABILITATION PHYSICIAN FOR: Coordination of Treatment Team Medical and Co-Morbidity Management Post-Op Complications Sleep Problems Wound Care PATIENT REQUIRES 24X7 REHAB NURSING FOR MEDICAL AND FUNCTIONAL MGT. OF THE FOLLOWING DEFICITS: Disease Management Medication Management Patient/Family Education Providing Safe Environment Skin Integrity PATIENT REQUIRES INTENSIVE, COORDINATED INTERDISCIPLINARY APPROACH TO REHAB: Arranging Home Equipment/Services Discharge Planning Family Intervention/Training Endodontist/Case Management LIST OF IDENTIFIED AND POTENTIAL PROBLEMS: Alteration in Sleep Alteration in leisure activities Bladder, Incontinence Bowel, Incontinence Infection, Actual or Potential Mobility Impaired Pain, Alteration in Comfort Self Care Deficit Skin Integrity, Actual or Potential Urinary Tract Infection (UTI), Actual or Potential RISK FOR COMPLICATIONS - Osteoporosis Falls. Fractures (pathological). - Osteoarthritis Falls. INTERVENTIONS - Osteoporosis Medications. Safety. - Osteoarthritis Energy conservation. Exercise. Joint Protection. Medications. Pain management. PATIENT COULD BE AT RISK FOR COMPLICATIONS FROM ADVERSE MEDICAL CONDITIONS DUE TO HIS/HER COMORBIDITI ES AND THE RIGORS OF THE INTENSIVE REHABILLITATION PROGRAM. METHODS OR INTERVENTIONS TO AVOID COMPLIC ATIONS INCLUDE: - Bleeding Assess lab values and manage abnormalities. Nursing to teach precautions for anti-coagulation therapy . Wound to be assessed every shift. - Infection Clinical staff to assess and manage the signs and symptoms of infection including fever, redness, war mth, etc. - Urinary Tract Infection - Falls Patient will be evaluated for Fall Precautions and will be placed on Fall Precautions as indicated pe r protocol. - Skin Breakdown Nursing will assess skin daily using assessment tool and will place on Skin Breakdown Precautions as indicated per protocol. - Pain Clinical staff may employ non-medication methods such as massage, distraction, decrease stimulus, etc . as needed. Clinical staff will assess patient's pain level every shift per protocol to assess and e nsure pain management effectiveness. Medications will be given and the pain level re-assessed. PRELIMINARY PLAN OF CARE: - Physical Therapy Patient needs Physical Therapy for a daily minimum of 1.5 hours at least 5 out of 7 days, to improve: Mobility, Strengthening, Transfers, Stretching, ROM, Endurance, Ability to manage stairs, Gait, and Balance. - Rehabilitation Nursing Patient requires 24x7 Rehabilitation Nursing for: Pain Issues, Identifying and preventing risk factor s, Monitoring and reporting current medical conditions, Assisting with ambulation and transfer, Raquel ting with all ADL-s, Teaching patients about disease process and medications, Family teaching, Provid ing safe environment, Bowel and Bladder Issues, Skin Integrity, and Medication Management. Patient needs Endodontist and/or Case Management for: Discharge Planning, Arranging Home Equipmen t or Services, and Family Interventions. - Dietary and Nutrition Services Patient needs Dietary and Nutrition Services for: Adequate Nutrition, Nutritional Supplements, and Nu tritional Education. - Occupational Therapy Patient needs Occupational Therapy for a daily minimum of 1.5 hours at least 5 out of 7 days, to impr ove Activities of Daily Living, including: Eating, Grooming, Bathing, Dressing, Toileting, Toilet Tra nsfers, Community Reintegration, Higher functional activities, Adaptive Equipment, Splinting, Househo ld Tasks, and Other activities as determined. QI SCORES: - Self-Care A. Eating 05-Setup or clean-up assistance B. Oral hygiene 05-Setup or clean-up assistance C. Toileting hygiene 03-Partial/moderate assistance E. Shower/bathe self 03-Partial/moderate assistance F. Upper body dressing 04-Supervision or touching assistance G. Lower body dressing 02-Substantial/maximal assistance H. Putting on/taking off footwear 02-Substantial/maximal assistance - Mobility A. Roll left and right 03-Partial/moderate assistance B. Sit to lying 03-Partial/moderate assistance C. Lying to sitting on side of bed 03-Partial/moderate assistance D. Sit to stand 03-Partial/moderate assistance E. Chair/wqy-am-kmnry transfer 03-Partial/moderate assistance F. Toilet transfer 03-Partial/moderate assistance G. Car transfer 88-Not attempted due to medical condition or safety concerns I. Walk 10 feet 02-Substantial/maximal assistance J. Walk 50 feet with two turns 88-Not attempted due to medical condition or safety concerns K. Walk 150 feet 88-Not attempted due to medical condition or safety concerns L. Walking 10 feet on uneven surfaces 88-Not attempted due to medical condition or safety concerns M. 1 step (curb) 88-Not attempted due to medical condition or safety concerns N. 4 steps 88-Not attempted due to medical condition or safety concerns O. 12 steps 88-Not attempted due to medical condition or safety concerns P. Picking up object 88-Not attempted due to medical condition or safety concerns R. Wheel 50 feet with two turns 88-Not attempted due to medical condition or safety concerns S. Wheel 150 feet 88-Not attempted due to medical condition or safety concerns - Bladder and Bowel Bladder continence 0-Always continent Bowel continence 0-Always continent - Endurance Poor - Balance Poor - Safety Awareness Fair POTENTIAL FUNCTIONAL GOALS FOR PATIENT TO ACHIEVE BY DISCHARGE: - Safety Precaution Patient will remain free from falls or injury at time of discharge. - Bed Mobility Patient will perform bed mobility at 4-Buck level of assistance. - Transfers Patient will complete transfers from bed to chair at 4-Buck level of assistance. - Mobility Patient will ambulate 150 ft with 4-Buck level of assistance with RW. PATIENT REHAB POTENTIAL Shayy CAVAZOS is able and expected to receive 3 hours of individualized therapy daily on at least 5 o f every 7 days Shayy CAVAZOS's prognosis for significant practical improvement within a reasonable period of time ap pears Good Expected level of measurable improvement will be of a practical value to Shayy CAVAZOS's functional c apacity or adaptations to impairments Has a viable Discharge Plan Medically appropriate; condition is sufficiently stable to participate in intensive rehab program DISCHARGE PLAN: - Estimated Length of Stay (days) 13. - Consensus on plan Discharge plan has been discussed with primary caregiver. Patient/Family is in agreement with the john n. Primary caregiver is in agreement with the plan. - Patient/Family Goals Return home with assistance. - Planned Living Setting Upon Discharge Home, to live with Family/Relatives. Transitional Living. Primary caregiver: Pt self. CONCLUSION ON REHABILITATION NECESSITY: I have evaluated patient's pre-admission functional status and, comparing it to the patient's post-ad mission functional status now, I conclude that the pre-admission assessment was accurate. Patient's c ondition on admission supports the medical necessity of admission to IRF. It is safe to proceed with patient's therapy program. SIGNATURE PANEL: (ICE CREAM DIPPER)
[2019-04-13] MEDS: ALPRAZOLAM 0.25 MG TABLET PO SCH (20:46)
--- NOTE | 2019-04-13 22:54 | PN ---
Date of Progress Note: 04/13/2019 Subjective: Patient was seen this morning for followup. Patient had a bowel movement last night. N o new complaints or problems reported. Objective: HEENT: Unremarkable. Lungs: Clear to auscultation. Heart: Sounds normal. Abdomen: Soft. Bowel sounds normal. No guarding, rigidity, tenderness, or distention. Extremities: No leg edema. Impression: 1.Hypertension. 2.Constipation. 3.Anemia. Plan: We will continue current medications. Continue current stool softener/laxative. Continue DVT prophylaxis with Xarelto. Physical Therapy to be provided under guidance of Dr. Vega. I will s ee her tomorrow for followup. CELSA/MODL Voice ID: [id number] Report ID: [id number]
[2019-04-14] MEDS: PANTOPRAZOLE 40MG TABLET PO SCH ×2 (06:25→16:44)
[2019-04-14] MEDS: LEVOTHYROXINE SOD 0.075 MG TAB PO SCH (06:25)
[2019-04-14] MEDS: CALCIUM CARB 500MG/VIT D 200 IU TAB PO SCH (08:00)
[2019-04-14] MEDS: AMLODIPINE 5 MG TAB PO SCH (08:32)
[2019-04-14] MEDS: FOLBIC 1 TAB PO SCH (08:32)
[2019-04-14] MEDS: MULTIVITAMIN TAB PO SCH (08:33)
[2019-04-14] MEDS: GABAPENTIN 100 MG CAP PO SCH ×2 (08:33→20:38)
[2019-04-14] MEDS: LACTOBACILLUS/ACIDOPHILUS TAB PO SCH (08:33)
[2019-04-14] MEDS: DOCUSATE NA/SENNA CONC 1 TAB PO SCH ×2 (08:33→20:38)
[2019-04-14] MEDS: HYDROCODONE/APAP 7.5/325 MG TAB PO PRN ×4 (08:34→21:43)
[2019-04-14] MEDS ORDERED: BISACODYL 10 MG RECTAL SUPP PR PRN (09:37)
[2019-04-14] MEDS: ONDANSETRON 4 MG (ODT) TAB PO PRN (09:38)
[2019-04-14] MEDS: RIVAROXABAN 10 MG TABLET PO SCH (16:44)
--- NOTE | 2019-04-14 18:02 | R.PN ---
ENCOUNTER DATE AND TIME: 04/14/2019 17:52 (JOB FORWARDER) NAME FARZAD CAVAZOS DATE OF : 1940 DATE OF ADMISSION: 04/10/2019 15:46 (JOB FORWARDER) .Osteoarthritis, Right HipCHIEF COMPLAINT: Osteoarthritis of right hip. SUBJECTIVE: Pt denied any Shortness of Breath. Pt denied any depression. Bed mobility and transfers done with standby assistance. Up and down 15 steps with bilateral handrail s with standby assistance. VITAL SIGNS Temperature: 98.0 F SBP/DBP: 138/51 Pulse: 70 Resp: 16 MEDICATION ALLERGIES: Erythromycin Levofloxacin Penicillin Meperidine HCl Sulfa ENVIRONMENTAL ALLERGIES: Shellfish - Substance Allergies None Known - Other Allergies None Known NURSING: - Shower allowing shower ACTIVITIES OOB only with supervision THERAPIES: - Orthotics/Prosthetics Orthotic Evaluation. Splinting/Casting. - Dietary and Nutrition Adequate Nutrition. Nutritional Education. Nutritional Supplements. PHYSICAL EXAM - Gen Alert and awake Lying in bed No apparent distress Oriented to: person, time, and place - Skin No skin breakdown. Normacephalic - Eyes No abnormalities - ENMT No abnormalities - Neck No abnormalities - CVS RRR - Chest Clear - Abd Soft - GI Non distended Deferred - No abnormalities - Ext Mild postoperative edema in the right lower extremity Right hip surgical site has good hemostasis. - MSK 4+/5 weakness in right lower extremity - Neuro 4/5 strength right lower extremity. - Psych No abnormalities ASSESSMENT: Pt. is a 78 yo Right-handed white female.On 04/07/2019 she was admitted to [facility] with diagnosis .Osteoarthritis, Right Hip.Her impairment category is Arthritis 06 - Osteoarthritis (06.2).Pre-morbidly, Pt. was independent/mod-I in Locomotion, Safety Awareness, Balance, Social Cogni tion, Transfers Control, Sphincter Control, Self-Care, Communication, and Endurance; and she had good Locomotion, Safety Awareness, Balance, Social Cognition, Transfers Control, Sphincter Control, Self- Care, Communication, and Endurance.Currently, she has deficits of Locomotion, Safety Awareness, Ame ce, Social Cognition, Transfers Control, Self-Care, and Endurance.Pt. is now referred to [facility] for acute in-patient rehabilitation in order to maximize patient's functional i ndependence in activities of daily living, strength, ROM, and mobility.- Rehab Goal Patient has realistic goal of being discharged at assistance level 6-Saida to reside at Home with Fam estefani/Relatives. MDM/PLAN: - Physical Therapy Gait dysfunction - to improve, our physical therapists will perform initial evaluation of pt's statu s upon admission and devise an individualized program for Gait Training, and Wheel Chair mobility Inability to transfer - to improve, our physical therapists will perform initial evaluation of pt's status upon admission and devise an individualized program for Bed mobility Need for home safety evaluation - to improve, our physical therapists will perform initial evaluatio n of pt's status upon admission and devise an individualized program for Home Evaluation Need in caregiver upon discharge - to improve, our physical therapists will perform initial evaluati on of pt's status upon admission and devise an individualized program for Caregiver Training New precaution - to improve, our physical therapists will perform initial evaluation of pt's status upon admission and devise an individualized program for Patient precaution education Edema - to improve, our physical therapists will perform initial evaluation of pt's status upon admis karrie and devise an individualized program for Elevation Training, and Lymphedema Therapy Poor balance - to improve, our physical therapists will perform initial evaluation of pt's status up on admission and devise an individualized program for Balance Training Poor endurance - to improve, our physical therapists will perform initial evaluation of pt's status upon admission and devise an individualized program for Endurance Training Weakness - to improve, our physical therapists will perform initial evaluation of pt's status upon a dmission and devise an individualized program for Aquatic Therapy, Neuromuscular Reeducation, and Str engthening Achieving independence - to improve, our physical therapists will perform initial evaluation of pt's status upon admission and devise an individualized program for Community Reintegration Activities - Occupational Therapy ADL deficits - to improve, our occupation therapists will perform initial evaluation of pt's status upon admission and devise an individualized program for Bathing, Bed mobility, Community Reintegratio n, Cooking, Dressing, Eating, Fine Motor Skills, Grooming, Homemaking, Kitchen Mobility, Laundry, Pat ient Education, Safety Awareness, Splinting - Positioning, Transfers(Toilet, Tub, Shower), and Wheel Chair Management Cognitive deficits - to improve, our occupation therapists will perform initial evaluation of pt's s tatus upon admission and devise an individualized program for Cognition - orientation Need for acute care nursing assistant - to improve, our occupation therapists will perform initial evaluation of pt's status upon admission and devise an individualized program for Caregiver Training Weakness - to improve, our occupation therapists will perform initial evaluation of pt's status upon admission and devise an individualized program for Aquatic Therapy, Balance, Endurance, UE ROM, and UE strengthening - Other See attached MAR (Medication Administration Record) - Diet Type Continue Regular - Diet - Liquid Texture Continue Regular - Tube Feed Continue N/A - Diet - Solid Texture Continue Regular - Shower allowing shower FUNCTIONAL STATUS: UPDATED AT WEEKLY TEAM CONFERENCE - Bladder Same accident frequency: 7-Ind - No accidents in the past 7 days - Bowel Same accident frequency: 7-Ind - No accidents in the past 7 days - Walking Same score based on distance walked: 0(N/A) Same score based on distance walked: 1(<=50ft) - Wheelchair Same score based on distance traveled: 0(N/A) FUNCTIONAL STATUS: - Self-Care A. Eating Saida B. Grooming Saida C. Bathing Buck D. Dressing - Upper sup E. Dressing - Lower Buck F. Toileting Buck - Sphincter Control G. Bladder control sup H. Bowel control sup - Transfers Control I. Bed/Chair/Wheelchair Buck J. Toilet sup K. Tub/Shower sup - Locomotion L. Walk/Wheelchair (B) sup M. Stairs sup - Communication N. Comprehension (B) Saida O. Expression (B) Saida - Social Cognition P. Social Interaction Saida Q. Problem Solving Saida R. Memory Saida - Endurance Good - Balance Good - Safety Awareness Good QI SCORES: - Self-Care A. Eating 05-Setup or clean-up assistance B. Oral hygiene 05-Setup or clean-up assistance C. Toileting hygiene 03-Partial/moderate assistance E. Shower/bathe self 03-Partial/moderate assistance F. Upper body dressing 04-Supervision or touching assistance G. Lower body dressing 02-Substantial/maximal assistance H. Putting on/taking off footwear 02-Substantial/maximal assistance - Mobility A. Roll left and right 03-Partial/moderate assistance B. Sit to lying 03-Partial/moderate assistance C. Lying to sitting on side of bed 03-Partial/moderate assistance D. Sit to stand 03-Partial/moderate assistance E. Chair/lcv-fj-aqitk transfer 03-Partial/moderate assistance F. Toilet transfer 03-Partial/moderate assistance G. Car transfer 88-Not attempted due to medical condition or safety concerns I. Walk 10 feet 02-Substantial/maximal assistance J. Walk 50 feet with two turns 88-Not attempted due to medical condition or safety concerns K. Walk 150 feet 88-Not attempted due to medical condition or safety concerns L. Walking 10 feet on uneven surfaces 88-Not attempted due to medical condition or safety concerns M. 1 step (curb) 88-Not attempted due to medical condition or safety concerns N. 4 steps 88-Not attempted due to medical condition or safety concerns O. 12 steps 88-Not attempted due to medical condition or safety concerns P. Picking up object 88-Not attempted due to medical condition or safety concerns R. Wheel 50 feet with two turns 88-Not attempted due to medical condition or safety concerns S. Wheel 150 feet 88-Not attempted due to medical condition or safety concerns - Bladder and Bowel Bladder continence 0-Always continent Bowel continence 0-Always continent - Endurance Poor - Balance Poor - Safety Awareness Fair CURRENT FUNC. DEFICITS: Self-Care, Mobility, Endurance, Balance, and Safety Awareness SIGNATURE PANEL: (JOB FORWARDER)
[2019-04-14] MEDS: ALPRAZOLAM 0.25 MG TABLET PO SCH (20:38)
[2019-04-14] MEDS: MELATONIN 3 MG TABLET PO PRN (20:38)
--- NOTE | 2019-04-14 23:40 | PN ---
Date of Progress Note: 04/14/2019 Subjective: Patient was seen this morning for followup. No new complaints or problems reported by h er. Objective: Vital Signs: Reviewed. HEENT: Unremarkable. Lungs: Clear to auscultation. Heart: Sounds normal. Abdomen: Soft. Bowel sounds normal. No guarding, rigidity, tenderness, or distention. Extremities: No leg edema. Impression: 1.Constipation. 2.Osteoarthritis, multiple sites. 3.Osteoporosis. Plan: We will continue current stool softener/laxative. Continue current DVT prophylaxis and physic al therapy under guidance of Dr. Vega and I will see her tomorrow for followup. CELSA/MODL Voice ID: [id number] Report ID: [id number]
[2019-04-15] MEDS: PANTOPRAZOLE 40MG TABLET PO SCH ×2 (06:20→16:01)
[2019-04-15] MEDS: LEVOTHYROXINE SOD 0.075 MG TAB PO SCH (06:20)
[2019-04-15] MEDS: CALCIUM CARB 500MG/VIT D 200 IU TAB PO SCH (08:00)
[2019-04-15] MEDS: MULTIVITAMIN TAB PO SCH (09:02)
[2019-04-15] MEDS: DOCUSATE NA/SENNA CONC 1 TAB PO SCH ×2 (09:02→20:30)
[2019-04-15] MEDS: LACTOBACILLUS/ACIDOPHILUS TAB PO SCH (09:02)
[2019-04-15] MEDS: AMLODIPINE 5 MG TAB PO SCH (09:02)
[2019-04-15] MEDS: FOLBIC 1 TAB PO SCH (09:02)
[2019-04-15] MEDS: HYDROCODONE/APAP 7.5/325 MG TAB PO PRN ×2 (09:03→12:52)
[2019-04-15] MEDS: GABAPENTIN 100 MG CAP PO SCH ×2 (09:03→20:30)
--- NOTE | 2019-04-15 11:21 | RAD REPORT ---
EXAM DESCRIPTION: US - Extrem Venous W Compress Yunier - 04/15/2019 10:52 am CLINICAL HISTORY: leg edema Bilateral leg edema and swelling. COMPARISON: No comparisons TECHNIQUE: Real-time sonographic interrogation of the left and right lower extremity deep venous sys tems was performed. FINDINGS: Normal compressibility, flow augmentation, phasic flow and spontaneous flow is identified in both the left and right lower extremity deep venous systems. IMPRESSION: No sonographic evidence of left or right lower extremity deep venous thrombosis.
[2019-04-15] MEDS: RIVAROXABAN 10 MG TABLET PO SCH (16:01)
--- NOTE | 2019-04-15 18:17 | R.PN ---
ENCOUNTER DATE AND TIME: 04/15/2019 18:14 (MANAGER RELOCATION) NAME FARZAD CAVAZOS DATE OF : 1940 DATE OF ADMISSION: 04/10/2019 15:46 (MANAGER RELOCATION) .Osteoarthritis, Right HipCHIEF COMPLAINT: Osteoarthritis of right hip. SUBJECTIVE: Pt denied any Shortness of Breath. Pt denied any depression. Bed mobility and transfers done with standby assistance. Up and down 15 steps with bilateral handrail s with standby assistance. Ambulated 650' with standby assistance. VITAL SIGNS Temperature: 97.6 F SBP/DBP: 136/62 Pulse: 68 Resp: 16 MEDICATION ALLERGIES: Erythromycin Levofloxacin Penicillin Meperidine HCl Sulfa ENVIRONMENTAL ALLERGIES: Shellfish - Substance Allergies None Known - Other Allergies None Known NURSING: - Shower allowing shower ACTIVITIES OOB only with supervision THERAPIES: - Orthotics/Prosthetics Orthotic Evaluation. Splinting/Casting. - Dietary and Nutrition Adequate Nutrition. Nutritional Education. Nutritional Supplements. PHYSICAL EXAM - Gen Alert and awake Lying in bed No apparent distress Oriented to: person, time, and place - Skin No skin breakdown. Normacephalic - Eyes No abnormalities - ENMT No abnormalities - Neck No abnormalities - CVS RRR - Chest Clear - Abd Soft - GI Non distended Deferred - No abnormalities - Ext Mild postoperative edema in the right lower extremity Right hip surgical site has good hemostasis. - MSK 4+/5 weakness in right lower extremity - Neuro 4/5 strength right lower extremity. - Psych No abnormalities ASSESSMENT: Pt. is a 78 yo Right-handed white female.On 04/07/2019 she was admitted to [facility] with diagnosis .Osteoarthritis, Right Hip.Her impairment category is Arthritis 06 - Osteoarthritis (06.2).Pre-morbidly, Pt. was independent/mod-I in Locomotion, Safety Awareness, Balance, Social Cogni tion, Transfers Control, Sphincter Control, Self-Care, Communication, and Endurance; and she had good Locomotion, Safety Awareness, Balance, Social Cognition, Transfers Control, Sphincter Control, Self- Care, Communication, and Endurance.Currently, she has deficits of Locomotion, Safety Awareness, Ame ce, Social Cognition, Transfers Control, Self-Care, and Endurance.Pt. is now referred to [facility] for acute in-patient rehabilitation in order to maximize patient's functional i ndependence in activities of daily living, strength, ROM, and mobility.- Rehab Goal Patient has realistic goal of being discharged at assistance level 6-Saida to reside at Home with Fam estefani/Relatives. MDM/PLAN: - Physical Therapy Gait dysfunction - to improve, our physical therapists will perform initial evaluation of pt's statu s upon admission and devise an individualized program for Gait Training, and Wheel Chair mobility Inability to transfer - to improve, our physical therapists will perform initial evaluation of pt's status upon admission and devise an individualized program for Bed mobility Need for home safety evaluation - to improve, our physical therapists will perform initial evaluatio n of pt's status upon admission and devise an individualized program for Home Evaluation Need in caregiver upon discharge - to improve, our physical therapists will perform initial evaluati on of pt's status upon admission and devise an individualized program for Caregiver Training New precaution - to improve, our physical therapists will perform initial evaluation of pt's status upon admission and devise an individualized program for Patient precaution education Edema - to improve, our physical therapists will perform initial evaluation of pt's status upon admi ssion and devise an individualized program for Elevation Training, and Lymphedema Therapy Poor balance - to improve, our physical therapists will perform initial evaluation of pt's status up on admission and devise an individualized program for Balance Training Poor endurance - to improve, our physical therapists will perform initial evaluation of pt's status upon admission and devise an individualized program for Endurance Training Weakness - to improve, our physical therapists will perform initial evaluation of pt's status upon a dmission and devise an individualized program for Aquatic Therapy, Neuromuscular Reeducation, and Str engthening Achieving independence - to improve, our physical therapists will perform initial evaluation of pt's status upon admission and devise an individualized program for Community Reintegration Activities - Occupational Therapy ADL deficits - to improve, our occupation therapists will perform initial evaluation of pt's status upon admission and devise an individualized program for Bathing, Bed mobility, Community Reintegratio n, Cooking, Dressing, Eating, Fine Motor Skills, Grooming, Homemaking, Kitchen Mobility, Laundry, Pat ient Education, Safety Awareness, Splinting - Positioning, Transfers(Toilet, Tub, Shower), and Wheel Chair Management Cognitive deficits - to improve, our occupation therapists will perform initial evaluation of pt's s tatus upon admission and devise an individualized program for Cognition - orientation Need for career developer - to improve, our occupation therapists will perform initial evaluation of pt's status upon admission and devise an individualized program for Caregiver Training Weakness - to improve, our occupation therapists will perform initial evaluation of pt's status upon admission and devise an individualized program for Aquatic Therapy, Balance, Endurance, UE ROM, and UE strengthening - Other See attached MAR (Medication Administration Record) - Diet Type Continue Regular - Diet - Liquid Texture Continue Regular - Tube Feed Continue N/A - Diet - Solid Texture Continue Regular - Shower allowing shower FUNCTIONAL STATUS: UPDATED AT WEEKLY TEAM CONFERENCE - Bladder Same accident frequency: 7-Ind - No accidents in the past 7 days - Bowel Same accident frequency: 7-Ind - No accidents in the past 7 days - Walking Same score based on distance walked: 0(N/A) Same score based on distance walked: 1(<=50ft) - Wheelchair Same score based on distance traveled: 0(N/A) FUNCTIONAL STATUS: - Self-Care A. Eating Saida B. Grooming Saida C. Bathing Buck D. Dressing - Upper sup E. Dressing - Lower Buck F. Toileting Buck - Sphincter Control G. Bladder control sup H. Bowel control sup - Transfers Control I. Bed/Chair/Wheelchair Buck J. Toilet sup K. Tub/Shower sup - Locomotion L. Walk/Wheelchair (B) sup M. Stairs sup - Communication N. Comprehension (B) Saida O. Expression (B) Saida - Social Cognition P. Social Interaction Saida Q. Problem Solving Saida R. Memory Saida - Endurance Good - Balance Good - Safety Awareness Good QI SCORES: - Self-Care A. Eating 05-Setup or clean-up assistance B. Oral hygiene 05-Setup or clean-up assistance C. Toileting hygiene 03-Partial/moderate assistance E. Shower/bathe self 03-Partial/moderate assistance F. Upper body dressing 04-Supervision or touching assistance G. Lower body dressing 02-Substantial/maximal assistance H. Putting on/taking off footwear 02-Substantial/maximal assistance - Mobility A. Roll left and right 03-Partial/moderate assistance B. Sit to lying 03-Partial/moderate assistance C. Lying to sitting on side of bed 03-Partial/moderate assistance D. Sit to stand 03-Partial/moderate assistance E. Chair/[id number] transfer 03-Partial/moderate assistance F. Toilet transfer 03-Partial/moderate assistance G. Car transfer 88-Not attempted due to medical condition or safety concerns I. Walk 10 feet 02-Substantial/maximal assistance J. Walk 50 feet with two turns 88-Not attempted due to medical condition or safety concerns K. Walk 150 feet 88-Not attempted due to medical condition or safety concerns L. Walking 10 feet on uneven surfaces 88-Not attempted due to medical condition or safety concerns M. 1 step (curb) 88-Not attempted due to medical condition or safety concerns N. 4 steps 88-Not attempted due to medical condition or safety concerns O. 12 steps 88-Not attempted due to medical condition or safety concerns P. Picking up object 88-Not attempted due to medical condition or safety concerns R. Wheel 50 feet with two turns 88-Not attempted due to medical condition or safety concerns S. Wheel 150 feet 88-Not attempted due to medical condition or safety concerns - Bladder and Bowel Bladder continence 0-Always continent Bowel continence 0-Always continent - Endurance Poor - Balance Poor - Safety Awareness Fair CURRENT FUNC. DEFICITS: Self-Care, Mobility, Endurance, Balance, and Safety Awareness SIGNATURE PANEL: (MANAGER RELOCATION)
[2019-04-15] MEDS: ALPRAZOLAM 0.25 MG TABLET PO SCH (20:30)
[2019-04-15] MEDS: PROMOD 30 ML DOSE PO SCH (20:30)
[2019-04-15] MEDS: CODEINE 30MG/APAP 300MG TAB PO PRN (20:32)
[2019-04-15] MEDS: MELATONIN 3 MG TABLET PO PRN (20:32)
--- NOTE | 2019-04-16 01:16 | PN ---
Date of Progress Note: 04/15/2019 Subjective: Patient was seen this morning for followup. She was lying in bed, not in distress. No new complaints. Objective: HEENT: Unremarkable. Lungs: Clear to auscultation. Heart: Sounds normal. Abdomen: Soft. Bowel sounds normal. No guarding, rigidity, tenderness, or distension. Extremities: Right leg edema present, more today than last couple of days. Left leg, no edema. Impression: 1.Right leg edema. 2.Osteoarthritis, multiple sites. 3.Constipation. Plan: Venous Doppler of both legs was ordered today and results reviewed. It is negative for DVT. We will continue current DVT prophylaxis. Continue current Senokot S and patient did receive Dulcola x rectal suppository this morning for constipation as she has not had a bowel movement for last 2 day s. I will see her tomorrow for followup. CELSA/MODL Voice ID: [id number] Report ID: [id number]
[2019-04-16 06:33] LABS: Absolute Lymphocytes (CBC) 2.2 K/uL (0.7-4.9); Lymphocytes % 25.8 % (15.3-44.8); MPV 6.8 fL (7.6-11.3)
[2019-04-16 07:00] LABS: Albumin 2.5 g/dL (3.4-5.0); BUN Blood Urea Nitrogen 7 mg/dL (7-18); Bicarbonate 28 mmol/L (21-32); Glucose Level 84 mg/dL (74-106); Magnesium 2.4 mg/dL (1.8-2.4); Potassium 4.4 mmol/L (3.5-5.1); Prealbumin 13.1 mg/dL (20-40); Sodium Level 138 mmol/L (136-145)
[2019-04-16] MEDS: PANTOPRAZOLE 40MG TABLET PO SCH ×2 (07:02→17:27)
[2019-04-16] MEDS: LEVOTHYROXINE SOD 0.075 MG TAB PO SCH (07:02)
[2019-04-16] MEDS: PROMOD 30 ML DOSE PO SCH ×2 (08:00→19:46)
[2019-04-16] MEDS: FOLBIC 1 TAB PO SCH (08:00)
[2019-04-16] MEDS: CALCIUM CARB 500MG/VIT D 200 IU TAB PO SCH (08:00)
[2019-04-16] MEDS: MULTIVITAMIN TAB PO SCH (08:07)
[2019-04-16] MEDS: FE SULF/FA/VIT B COMP & C TAB PO SCH (08:07)
[2019-04-16] MEDS: HYDROCODONE/APAP 7.5/325 MG TAB PO PRN ×2 (08:09→17:39)
[2019-04-16] MEDS: GABAPENTIN 100 MG CAP PO SCH ×2 (08:09→19:46)
[2019-04-16] MEDS: LACTOBACILLUS/ACIDOPHILUS TAB PO SCH (08:09)
[2019-04-16] MEDS: DOCUSATE NA/SENNA CONC 1 TAB PO SCH ×2 (08:10→19:46)
[2019-04-16] MEDS: AMLODIPINE 5 MG TAB PO SCH (08:10)
[2019-04-16] MEDS: CEPHALEXIN 500 MG CAP PO SCH ×3 (08:38→19:46)
--- NOTE | 2019-04-16 11:40 | FAST ---
SHIFT START DATE/TIME: 04/16/2019 07:00 (VULCANIZER) SHIFT END DATE/TIME: 04/16/2019 19:00 (VULCANIZER) NAME FARZAD CAVAZOS DATE OF : 1940 DATE OF ADMISSION: 04/10/2019 15:46 (VULCANIZER) PHONE: AGE: 78 N# [id number] GENDER: Female ENCOUNTER PHYSICIAN: Dr. Vance Vega M.D. ADMISSION DIAGNOSIS: - Arthritis 06 - Osteoarthritis (06.2) .Osteoarthritis, Right Hip. EATING: EATING - STEP 1: Does the patient complete the activity by him/herself with no assistance (physical, verbal/nonverbal cueing, setup/clean-up)? No. EATING - STEP 2: Does the patient need only setup/clean-up assistance from one helper? No. EATING - STEP 3: Does the patient need only verbal/nonverbal cueing or touching/steadying/contact guard assistance fro m one helper? Yes. 1. [id number] ADMISSION PERFORMANCE: Supervision or touching assistance CODE: 04 ORAL HYGIENE: ORAL HYGIENE - STEP 1: Does the patient complete the activity by him/herself with no assistance (physical, verbal/nonverbal cueing, setup/clean-up)? No. ORAL HYGIENE - STEP 2: Does the patient need only setup/clean-up assistance from one helper? No. ORAL HYGIENE - STEP 3: Does the patient need only verbal/nonverbal cueing or touching/steadying/contact guard assistance fro m one helper? Yes. 1. [id number] ADMISSION PERFORMANCE: Supervision or touching assistance CODE: 04 TOILETING HYGIENE: TOILETING HYGIENE - STEP 1: Does the patient complete the activity by him/herself with no assistance (physical, verbal/nonverbal cueing, setup/clean-up)? No. TOILETING HYGIENE - STEP 2: Does the patient need only setup/clean-up assistance from one helper? No. TOILETING HYGIENE - STEP 3: Does the patient need only verbal/nonverbal cueing or touching/steadying/contact guard assistance fro m one helper? Yes. 1. [id number] ADMISSION PERFORMANCE: Supervision or touching assistance CODE: 04 BATHING: Not assessed/no information CODE: - DRESSING - UPPER BODY: DRESSING - UPPER BODY - STEP 1: Does the patient complete the activity by him/herself with no assistance (physical, verbal/nonverbal cueing, setup/clean-up)? No. DRESSING - UPPER BODY - STEP 2: Does the patient need only setup/clean-up assistance from one helper? No. DRESSING - UPPER BODY - STEP 3: Does the patient need only verbal/nonverbal cueing or touching/steadying/contact guard assistance fro m one helper? Yes. 1. [id number] ADMISSION PERFORMANCE: Supervision or touching assistance CODE: 04 DRESSING - LOWER BODY: DRESSING - LOWER BODY - STEP 1: Does the patient complete the activity by him/herself with no assistance (physical, verbal/nonverbal cueing, setup/clean-up)? No. DRESSING - LOWER BODY - STEP 2: Does the patient need only setup/clean-up assistance from one helper? No. DRESSING - LOWER BODY - STEP 3: Does the patient need only verbal/nonverbal cueing or touching/steadying/contact guard assistance fro m one helper? Yes. 1. [id number] ADMISSION PERFORMANCE: Supervision or touching assistance CODE: 04 PUTTING ON/TAKING OFF FOOTWEAR: Not assessed/no information CODE: - ROLL LEFT AND RIGHT: Not assessed/no information CODE: - SIT TO LYING: Not assessed/no information CODE: - LYING TO SITTING: Not assessed/no information CODE: - SIT TO STAND: SIT TO STAND - STEP 1: Does the patient complete the activity by him/herself with no assistance (physical, verbal/nonverbal cueing, setup/clean-up)? No. SIT TO STAND - STEP 2: Does the patient need only setup/clean-up assistance from one helper? No. SIT TO STAND - STEP 3: Does the patient need only verbal/nonverbal cueing or touching/steadying/contact guard assistance fro m one helper? Yes. 1. [id number] ADMISSION PERFORMANCE: Supervision or touching assistance CODE: 04 TRANSFERS: BED, CHAIR: CHAIR/[id number] TRANSFER - STEP 1: Does the patient complete the activity by him/herself with no assistance (physical, verbal/nonverbal cueing, setup/clean-up)? No. CHAIR/[id number] TRANSFER - STEP 2: Does the patient need only setup/clean-up assistance from one helper? No. CHAIR/[id number] TRANSFER - STEP 3: Does the patient need only verbal/nonverbal cueing or touching/steadying/contact guard assistance fro m one helper? No. CHAIR/[id number] TRANSFER - STEP 4: Does the patient need physical assistance - for example lifting or trunk support from one helper - wi th the helper providing less than half of the effort? Yes. 1. [id number] ADMISSION PERFORMANCE: Partial/moderate assistance CODE: 03 TRANSFER TOILET: TOILET TRANSFER - STEP 1: Does the patient complete the activity by him/herself with no assistance (physical, verbal/nonverbal cueing, setup/clean-up)? No. TOILET TRANSFER - STEP 2: Does the patient need only setup/clean-up assistance from one helper? No. TOILET TRANSFER - STEP 3: Does the patient need only verbal/nonverbal cueing or touching/steadying/contact guard assistance fro m one helper? Yes. 1. [id number] ADMISSION PERFORMANCE: Supervision or touching assistance CODE: 04 TRANSFERS: CAR: Not assessed/no information CODE: - WALK 10 FEET: Not assessed/no information CODE: - 1 STEP (CURB): Not assessed/no information CODE: - PICKING UP OBJECT: Not assessed/no information CODE: - DOES THE PATIENT USE A WHEELCHAIR/SCOOTER? CODE: EXPR WHEEL 50 FEET WITH TWO TURNS: Not assessed/no information CODE: - INDICATE THE TYPE OF WHEELCHAIR/SCOOTER USED: CODE: EXPR WHEEL 150 FEET: Not assessed/no information CODE: - INDICATE THE TYPE OF WHEELCHAIR/SCOOTER USED: CODE: EXPR BLADDER AND BOWEL: H350. BLADDER CONTINENCE (3-DAY ASSESSMENT PERIOD): Always continent (no documented incontinence) CODE: 0 H400. BOWEL CONTINENCE (3-DAY ASSESSMENT PERIOD): Always continent CODE: 0 SIGNATURE PANEL: The following modified sections: 1. [id number] Admission Performance, 1. [id number] Admission Performance, 1. [id number] Admission Performance, 1. [id number] Admission Performance, 1. [id number] Admission Performance, 1. [id number] Admission Performance, 1. [id number] Admission Performance, 1. [id number] Admission Performance , Code, H350. Bladder Continence (3-day assessment period), H400. Bowel Continence (3-day assessment period) were [electronically] signed by Charles Mon on SatApr 16 2019 11:39:51 T-0600 ([facility])
--- NOTE | 2019-04-16 17:14 | R.PN ---
ENCOUNTER DATE AND TIME: 04/16/2019 17:10 (LATENT PRINT EXAMINER) NAME FARZAD CAVAZOS DATE OF : 1940 DATE OF ADMISSION: 04/10/2019 15:46 (LATENT PRINT EXAMINER) .Osteoarthritis, Right HipCHIEF COMPLAINT: Osteoarthritis of right hip. SUBJECTIVE: Pt denied any Shortness of Breath. Pt denied any depression. Bed mobility and transfers done with standby assistance. Up and down 15 steps with bilateral handrail s with independence. Ambulated 750' with independence using a rolling walker. Hgb 10.4 and Plt 444, prealbumin improved to 13.1 from 8.4 5 days ago. VITAL SIGNS Temperature: 97.7 F SBP/DBP: 138/61 Pulse: 72 Resp: 16 MEDICATION ALLERGIES: Erythromycin Levofloxacin Penicillin Meperidine HCl Sulfa ENVIRONMENTAL ALLERGIES: Shellfish - Substance Allergies None Known - Other Allergies None Known NURSING: - Shower allowing shower ACTIVITIES OOB only with supervision THERAPIES: - Orthotics/Prosthetics Orthotic Evaluation. Splinting/Casting. - Dietary and Nutrition Adequate Nutrition. Nutritional Education. Nutritional Supplements. PHYSICAL EXAM - Gen Alert and awake Lying in bed No apparent distress Oriented to: person, time, and place - Skin No skin breakdown. Normacephalic - Eyes No abnormalities - ENMT No abnormalities - Neck No abnormalities - CVS RRR - Chest Clear - Abd Soft - GI Non distended Deferred - No abnormalities - Ext Mild postoperative edema in the right lower extremity Right hip surgical site has good hemostasis. - MSK 4+/5 weakness in right lower extremity - Neuro 4/5 strength right lower extremity. - Psych No abnormalities ASSESSMENT: Pt. is a 78 yo Right-handed white female.On 04/07/2019 she was admitted to [facility] with diagnosis .Osteoarthritis, Right Hip.Her impairment category is Arthritis 06 - Osteoarthritis (06.2).Pre-morbidly, Pt. was independent/mod-I in Locomotion, Safety Awareness, Balance, Social Cogni tion, Transfers Control, Sphincter Control, Self-Care, Communication, and Endurance; and she had good Locomotion, Safety Awareness, Balance, Social Cognition, Transfers Control, Sphincter Control, Self- Care, Communication, and Endurance.Currently, she has deficits of Locomotion, Safety Awareness, Ame ce, Social Cognition, Transfers Control, Self-Care, and Endurance.Pt. is now referred to [facility] for acute in-patient rehabilitation in order to maximize patient's functional i ndependence in activities of daily living, strength, ROM, and mobility.- Rehab Goal Patient has realistic goal of being discharged at assistance level 6-Saida to reside at Home with Fam estefani/Relatives. MDM/PLAN: - Physical Therapy Gait dysfunction - to improve, our physical therapists will perform initial evaluation of pt's statu s upon admission and devise an individualized program for Gait Training, and Wheel Chair mobility Inability to transfer - to improve, our physical therapists will perform initial evaluation of pt's status upon admission and devise an individualized program for Bed mobility Need for home safety evaluation - to improve, our physical therapists will perform initial evaluatio n of pt's status upon admission and devise an individualized program for Home Evaluation Need in caregiver upon discharge - to improve, our physical therapists will perform initial evaluati on of pt's status upon admission and devise an individualized program for Caregiver Training New precaution - to improve, our physical therapists will perform initial evaluation of pt's status upon admission and devise an individualized program for Patient precaution education Edema - to improve, our physical therapists will perform initial evaluation of pt's status upon admi ssion and devise an individualized program for Elevation Training, and Lymphedema Therapy Poor balance - to improve, our physical therapists will perform initial evaluation of pt's status up on admission and devise an individualized program for Balance Training Poor endurance - to improve, our physical therapists will perform initial evaluation of pt's status upon admission and devise an individualized program for Endurance Training Weakness - to improve, our physical therapists will perform initial evaluation of pt's status upon a dmission and devise an individualized program for Aquatic Therapy, Neuromuscular Reeducation, and Str engthening Achieving independence - to improve, our physical therapists will perform initial evaluation of pt's status upon admission and devise an individualized program for Community Reintegration Activities - Occupational Therapy ADL deficits - to improve, our occupation therapists will perform initial evaluation of pt's status upon admission and devise an individualized program for Bathing, Bed mobility, Community Reintegratio n, Cooking, Dressing, Eating, Fine Motor Skills, Grooming, Homemaking, Kitchen Mobility, Laundry, Pat ient Education, Safety Awareness, Splinting - Positioning, Transfers(Toilet, Tub, Shower), and Wheel Chair Management Cognitive deficits - to improve, our occupation therapists will perform initial evaluation of pt's s tatus upon admission and devise an individualized program for Cognition - orientation Need for healthcare network consultant - to improve, our occupation therapists will perform initial evaluation of pt's status upon admission and devise an individualized program for Caregiver Training Weakness - to improve, our occupation therapists will perform initial evaluation of pt's status upon admission and devise an individualized program for Aquatic Therapy, Balance, Endurance, UE ROM, and UE strengthening - Other See attached MAR (Medication Administration Record) - Diet Type Continue Regular - Diet - Liquid Texture Continue Regular - Tube Feed Continue N/A - Diet - Solid Texture Continue Regular - Shower allowing shower FUNCTIONAL STATUS: UPDATED AT WEEKLY TEAM CONFERENCE - Bladder Same accident frequency: 7-Ind - No accidents in the past 7 days - Bowel Same accident frequency: 7-Ind - No accidents in the past 7 days - Walking Same score based on distance walked: 0(N/A) Same score based on distance walked: 1(<=50ft) - Wheelchair Same score based on distance traveled: 0(N/A) FUNCTIONAL STATUS: - Self-Care A. Eating Saida B. Grooming Saida C. Bathing Buck D. Dressing - Upper sup E. Dressing - Lower Buck F. Toileting Buck - Sphincter Control G. Bladder control sup H. Bowel control sup - Transfers Control I. Bed/Chair/Wheelchair Buck J. Toilet sup K. Tub/Shower sup - Locomotion L. Walk/Wheelchair (B) sup M. Stairs sup - Communication N. Comprehension (B) Saida O. Expression (B) Saida - Social Cognition P. Social Interaction Saida Q. Problem Solving Saida R. Memory Saida - Endurance Good - Balance Good - Safety Awareness Good QI SCORES: - Self-Care A. Eating 05-Setup or clean-up assistance B. Oral hygiene 05-Setup or clean-up assistance C. Toileting hygiene 03-Partial/moderate assistance E. Shower/bathe self 03-Partial/moderate assistance F. Upper body dressing 04-Supervision or touching assistance G. Lower body dressing 02-Substantial/maximal assistance H. Putting on/taking off footwear 02-Substantial/maximal assistance - Mobility A. Roll left and right 03-Partial/moderate assistance B. Sit to lying 03-Partial/moderate assistance C. Lying to sitting on side of bed 03-Partial/moderate assistance D. Sit to stand 03-Partial/moderate assistance E. Chair/snb-tx-kqetw transfer 03-Partial/moderate assistance F. Toilet transfer 03-Partial/moderate assistance G. Car transfer 88-Not attempted due to medical condition or safety concerns I. Walk 10 feet 02-Substantial/maximal assistance J. Walk 50 feet with two turns 88-Not attempted due to medical condition or safety concerns K. Walk 150 feet 88-Not attempted due to medical condition or safety concerns L. Walking 10 feet on uneven surfaces 88-Not attempted due to medical condition or safety concerns M. 1 step (curb) 88-Not attempted due to medical condition or safety concerns N. 4 steps 88-Not attempted due to medical condition or safety concerns O. 12 steps 88-Not attempted due to medical condition or safety concerns P. Picking up object 88-Not attempted due to medical condition or safety concerns R. Wheel 50 feet with two turns 88-Not attempted due to medical condition or safety concerns S. Wheel 150 feet 88-Not attempted due to medical condition or safety concerns - Bladder and Bowel Bladder continence 0-Always continent Bowel continence 0-Always continent - Endurance Poor - Balance Poor - Safety Awareness Fair CURRENT FUNC. DEFICITS: Self-Care, Mobility, Endurance, Balance, and Safety Awareness SIGNATURE PANEL: (LATENT PRINT EXAMINER)
[2019-04-16] MEDS: RIVAROXABAN 10 MG TABLET PO SCH (17:26)
[2019-04-16] MEDS: MAGNESIUM HYDROXIDE 8% 30 ML PO PRN (17:40)
[2019-04-16] MEDS: ALPRAZOLAM 0.25 MG TABLET PO SCH (19:45)
[2019-04-16] MEDS: MELATONIN 3 MG TABLET PO PRN (19:46)
--- NOTE | 2019-04-16 23:45 | PN ---
Date of Progress Note: 04/16/2019 Subjective: Patient was seen this morning for followup. No new complaints or problems reported by h er. She had a bowel movement yesterday. Denies any abdominal pain, nausea, or vomiting. Objective: Vital Signs: Reviewed. HEENT: Unremarkable. Lungs: Clear to auscultation. Heart: Sounds normal. Abdomen: Soft. Bowel sounds normal. No guarding, rigidity, tenderness, or distention. Extremities: Right leg edema remains unchanged. Laboratory Data: White count 8.5, hemoglobin 10.4, platelets 444. Sodium 138, potassium 4.4, chlori de 104, bicarb 28, BUN 7, creatinine 0.5, glucose 84. Impression: 1.Anemia, due to acute blood loss. 2.Osteoarthritis, multiple sites. 3.Constipation. Plan: We will use milk of magnesia today. Continue current pain medication. Continue current DVT p rophylaxis and physical therapy under guidance of Dr. Vega. Patient has mild anemia with this re cent surgery. No need for any further intervention, except monitoring at this point. CELSA/MODL Voice ID: [id number] Report ID: [id number]
[2019-04-17] MEDS: HYDROCODONE/APAP 7.5/325 MG TAB PO PRN ×5 (01:09→22:17)
[2019-04-17] MEDS: LEVOTHYROXINE SOD 0.075 MG TAB PO SCH (06:42)
[2019-04-17] MEDS: PANTOPRAZOLE 40MG TABLET PO SCH ×2 (06:42→17:14)
[2019-04-17] MEDS: CALCIUM CARB 500MG/VIT D 200 IU TAB PO SCH (08:00)
[2019-04-17] MEDS: FE SULF/FA/VIT B COMP & C TAB PO SCH (08:02)
[2019-04-17] MEDS: AMLODIPINE 5 MG TAB PO SCH (08:02)
[2019-04-17] MEDS: MULTIVITAMIN TAB PO SCH (08:02)
[2019-04-17] MEDS: LACTOBACILLUS/ACIDOPHILUS TAB PO SCH (08:03)
[2019-04-17] MEDS: GABAPENTIN 100 MG CAP PO SCH ×2 (08:03→19:30)
[2019-04-17] MEDS: CEPHALEXIN 500 MG CAP PO SCH ×3 (08:03→20:49)
[2019-04-17] MEDS: FOLBIC 1 TAB PO SCH (08:03)
[2019-04-17] MEDS: PROMOD 30 ML DOSE PO SCH ×2 (08:03→19:32)
[2019-04-17] MEDS: DOCUSATE NA/SENNA CONC 1 TAB PO SCH ×2 (08:03→19:31)
--- NOTE | 2019-04-17 10:05 | P.RH.PN ---
Estimated Length of Stay: 13 Expected Discharge Date: 04/22/19 Discharge Disposition Plan: Home Family Support: Yes Residential Goal: Mobility, Transfers, Self Care Vital Signs: Last Vital Signs Temp 97.1 F 04/17/19 07:50 Pulse 70 04/17/19 08:02 Resp 16 04/17/19 09:01 BP 145/57 H 04/17/19 08:02 Pulse Ox 95 04/17/19 09:01 Laboratory: Laboratory Last Values WBC 8.5 K/uL (4.3-10.9) 04/16/19 06:05 RBC 3.50 M/uL (3.86-4.86) L 04/16/19 06:05 Hgb 10.4 g/dL (12.0-15.0) L 04/16/19 06:05 Hct 31.0 % (36.0-45.0) L 04/16/19 06:05 MCV 88.5 fL (80-100) 04/16/19 06:05 MCH 29.8 pg (27.0-35.0) 04/16/19 06:05 MCHC 33.7 g/dL (32.0-36.0) 04/16/19 06:05 RDW 14.3 % (12.1-15.2) 04/16/19 06:05 Plt Count 444 K/uL (152-406) H D 04/16/19 06:05 MPV 6.8 fL (7.6-11.3) L 04/16/19 06:05 Neutrophils % 56.4 % (41.7-73.7) 04/16/19 06:05 Lymphocytes % 25.8 % (15.3-44.8) 04/16/19 06:05 Monocytes % 10.8 % (3.3-12.3) 04/16/19 06:05 Eosinophils % 6.0 % (0-4.4) H 04/16/19 06:05 Basophils % 1.0 % (0-1.3) 04/16/19 06:05 Absolute Neutrophils 4.8 K/uL (1.8-8.0) 04/16/19 06:05 Absolute Lymphocytes 2.2 K/uL (0.7-4.9) 04/16/19 06:05 Absolute Monocytes 0.9 K/uL (0.1-1.3) 04/16/19 06:05 Absolute Eosinophils 0.5 K/uL (0-0.5) 04/16/19 06:05 Absolute Basophils 0.1 K/uL (0-0.5) 04/16/19 06:05 Sodium 138 mmol/L (136-145) 04/16/19 06:05 Potassium 4.4 mmol/L (3.5-5.1) 04/16/19 06:05 Chloride 105 mmol/L (98-107) 04/16/19 06:05 Carbon Dioxide 28 mmol/L (21-32) 04/16/19 06:05 BUN 7 mg/dL (7-18) 04/16/19 06:05 Creatinine 0.58 mg/dL (0.55-1.3) 04/16/19 06:05 Estimated GFR > 90 mL/min (=/>90) 04/16/19 06:05 Glucose 84 mg/dL (74-106) 04/16/19 06:05 Calcium 8.5 mg/dL (8.5-10.1) 04/16/19 06:05 Magnesium 2.4 mg/dL (1.8-2.4) 04/16/19 06:05 Albumin 2.5 g/dL (3.4-5.0) L 04/16/19 06:05 Prealbumin 13.1 mg/dL (20-40) L 04/16/19 06:05 Urine Color Yellow 04/11/19 00:50 Urine Appearance Clear 04/11/19 00:50 Urine pH 7.0 (5.0-7.0) 04/11/19 00:50 Ur Specific [place] <=1.005 (1.005-1.030) 04/11/19 00:50 Glucose (UA)(Auto) Negative (NEG) 04/11/19 00:50 Urine Ketones Negative (NEG) 04/11/19 00:50 Urine Blood Negative (NEG) 04/11/19 00:50 Urine Nitrite Negative (NEG) 04/11/19 00:50 Urine Bilirubin Negative (NEG) 04/11/19 00:50 Urine Urobilinogen 0.2 mg/dL (0.2-1.0) 04/11/19 00:50 Ur Leukocyte Esterase Negative (NEG) 04/11/19 00:50 Urine RBC None seen /HPF (NONE SEEN) 04/11/19 00:50 Urine WBC <5 /HPF (<5) 04/11/19 00:50 Ur Squamous Epith Cells <5 /HPF (NONE SEEN) 04/11/19 00:50 Urine Bacteria <20 /HPF (<20) 04/11/19 00:50 Urine Culture Reflexed Not needed 04/11/19 00:50 Urine Total Protein Negative (NEG) 04/11/19 00:50 Weight: 147 lb Wound Present: Yes Closed Surgical Incision Present: Yes Negative Pressure Wound Therapy Present: No Physician Update: Labs reviewed and are stable. She is doing well. She is mildly limited by IBS. She is independent walking 500' and up and down stairs with independence. Medical Issues: Patient is always continent with bladder and bowel. Functional Improvement: Patient has met all short-term and long-term goals at this time, w/ the exception of a car transfer. Car has not been available. Patient shows great work ethic and safety awareness w/ tasks. Summary: Patient's care plan and tank terminal gauger goals have been reviewed and revised as necessary. Please see the Rehabilitation Signature page for all necessary signatures.
[2019-04-17] MEDS: MAGNESIUM HYDROXIDE 8% 30 ML PO PRN (13:48)
--- NOTE | 2019-04-17 14:15 | PN ---
Date of Progress Note: 04/17/2019 Subjective: Patient was seen this morning for followup. No new complaints reported by patient. She was sitting in the wheelchair. Denied any complaints. Objective: Vital Signs: Reviewed. HEENT: Unremarkable. Lungs: Clear to auscultation. Heart: Sounds normal. Abdomen: Soft. Bowel sounds normal. No guarding, rigidity, tenderness, or distention. Extremities: Leg edema unchanged. Impression: 1. Constipation. 2. Osteoarthritis of multiple sites. 3. Leg edema. Plan: We will go ahead and continue current DVT prophylaxis. The patient gets milk of magnesia and yesterday and day before yesterday, she did not have any bowel movement except small bowel movement day before yesterday. We will continue milk of magnesia and tomorrow if she does not have any bowel movement, we will do Dulcolax rectal suppository again as she responds to that very well. CELSA/MODTerence Voice ID: [id number] Report ID: [id number] [place]
--- NOTE | 2019-04-17 14:31 | FAST ---
SHIFT START DATE/TIME: 04/17/2019 07:00 (MOLD DUMPER) SHIFT END DATE/TIME: 04/17/2019 19:00 (MOLD DUMPER) NAME FARZAD CAVAZOS DATE OF : 1940 DATE OF ADMISSION: 04/10/2019 15:46 (MOLD DUMPER) PHONE: AGE: 78 N# [id number] GENDER: Female ENCOUNTER PHYSICIAN: Dr. Vance Vega M.D. ADMISSION DIAGNOSIS: - Arthritis 06 - Osteoarthritis (06.2) .Osteoarthritis, Right Hip. EATING: EATING - STEP 1: Does the patient complete the activity by him/herself with no assistance (physical, verbal/nonverbal cueing, setup/clean-up)? No. EATING - STEP 2: Does the patient need only setup/clean-up assistance from one helper? Yes. 1. [id number] ADMISSION PERFORMANCE: Setup or clean-up assistance CODE: 05 ORAL HYGIENE: ORAL HYGIENE - STEP 1: Does the patient complete the activity by him/herself with no assistance (physical, verbal/nonverbal cueing, setup/clean-up)? No. ORAL HYGIENE - STEP 2: Does the patient need only setup/clean-up assistance from one helper? Yes. 1. [id number] ADMISSION PERFORMANCE: Setup or clean-up assistance CODE: 05 TOILETING HYGIENE: TOILETING HYGIENE - STEP 1: Does the patient complete the activity by him/herself with no assistance (physical, verbal/nonverbal cueing, setup/clean-up)? No. TOILETING HYGIENE - STEP 2: Does the patient need only setup/clean-up assistance from one helper? Yes. 1. [id number] ADMISSION PERFORMANCE: Setup or clean-up assistance CODE: 05 BATHING: Not assessed/no information CODE: - DRESSING - UPPER BODY: DRESSING - UPPER BODY - STEP 1: Does the patient complete the activity by him/herself with no assistance (physical, verbal/nonverbal cueing, setup/clean-up)? No. DRESSING - UPPER BODY - STEP 2: Does the patient need only setup/clean-up assistance from one helper? Yes. 1. [id number] ADMISSION PERFORMANCE: Setup or clean-up assistance CODE: 05 DRESSING - LOWER BODY: DRESSING - LOWER BODY - STEP 1: Does the patient complete the activity by him/herself with no assistance (physical, verbal/nonverbal cueing, setup/clean-up)? No. DRESSING - LOWER BODY - STEP 2: Does the patient need only setup/clean-up assistance from one helper? Yes. 1. [id number] ADMISSION PERFORMANCE: Setup or clean-up assistance CODE: 05 PUTTING ON/TAKING OFF FOOTWEAR: FOOTWEAR - STEP 1: Does the patient complete the activity by him/herself with no assistance (physical, verbal/nonverbal cueing, setup/clean-up)? No. FOOTWEAR - STEP 2: Does the patient need only setup/clean-up assistance from one helper? No. FOOTWEAR - STEP 3: Does the patient need only verbal/nonverbal cueing or touching/steadying/contact guard assistance fro m one helper? No. FOOTWEAR - STEP 4: Does the patient need physical assistance - for example lifting or trunk support from one helper - wi th the helper providing less than half of the effort? Yes. 1. [id number] ADMISSION PERFORMANCE: Partial/moderate assistance CODE: 03 SIT TO LYING: SIT TO LYING - STEP 1: Does the patient complete the activity by him/herself with no assistance (physical, verbal/nonverbal cueing, setup/clean-up)? No. SIT TO LYING - STEP 2: Does the patient need only setup/clean-up assistance from one helper? No. SIT TO LYING - STEP 3: Does the patient need only verbal/nonverbal cueing or touching/steadying/contact guard assistance fro m one helper? Yes. 1. [id number] ADMISSION PERFORMANCE: Supervision or touching assistance CODE: 04 LYING TO SITTING: LYING TO SITTING ON SIDE OF BED - STEP 1: Does the patient complete the activity by him/herself with no assistance (physical, verbal/nonverbal cueing, setup/clean-up)? No. LYING TO SITTING ON SIDE OF BED - STEP 2: Does the patient need only setup/clean-up assistance from one helper? Yes. 1. [id number] ADMISSION PERFORMANCE: Setup or clean-up assistance CODE: 05 SIT TO STAND: SIT TO STAND - STEP 1: Does the patient complete the activity by him/herself with no assistance (physical, verbal/nonverbal cueing, setup/clean-up)? No. SIT TO STAND - STEP 2: Does the patient need only setup/clean-up assistance from one helper? Yes. 1. [id number] ADMISSION PERFORMANCE: Setup or clean-up assistance CODE: 05 TRANSFERS: BED, CHAIR: CHAIR/[id number] TRANSFER - STEP 1: Does the patient complete the activity by him/herself with no assistance (physical, verbal/nonverbal cueing, setup/clean-up)? No. CHAIR/[id number] TRANSFER - STEP 2: Does the patient need only setup/clean-up assistance from one helper? Yes. 1. [id number] ADMISSION PERFORMANCE: Setup or clean-up assistance CODE: 05 TRANSFER TOILET: TOILET TRANSFER - STEP 1: Does the patient complete the activity by him/herself with no assistance (physical, verbal/nonverbal cueing, setup/clean-up)? No. TOILET TRANSFER - STEP 2: Does the patient need only setup/clean-up assistance from one helper? Yes. 1. [id number] ADMISSION PERFORMANCE: Setup or clean-up assistance CODE: 05 TRANSFERS: CAR: Not assessed/no information CODE: - WALK 10 FEET: Not assessed/no information CODE: - 1 STEP (CURB): Not assessed/no information CODE: - PICKING UP OBJECT: Not assessed/no information CODE: - DOES THE PATIENT USE A WHEELCHAIR/SCOOTER? Q1. DOES THE PATIENT USE A WHEELCHAIR/SCOOTER?: Yes CODE: 1 WHEEL 50 FEET WITH TWO TURNS: WHEEL 50 FEET WITH TWO TURNS - STEP 1: Does the patient complete the activity by him/herself with no assistance (physical, verbal/nonverbal cueing, setup/clean-up)? No. WHEEL 50 FEET WITH TWO TURNS - STEP 2: Does the patient need only setup/clean-up assistance from one helper? Yes. 1. [id number] ADMISSION PERFORMANCE: Setup or clean-up assistance CODE: 05 INDICATE THE TYPE OF WHEELCHAIR/SCOOTER USED: RR1. INDICATE THE TYPE OF WHEELCHAIR/SCOOTER USED.: Manual CODE: 1 WHEEL 150 FEET: Not assessed/no information CODE: - INDICATE THE TYPE OF WHEELCHAIR/SCOOTER USED: SS1. INDICATE THE TYPE OF WHEELCHAIR/SCOOTER USED.: Manual CODE: 1 BLADDER AND BOWEL: H350. BLADDER CONTINENCE (3-DAY ASSESSMENT PERIOD): Always continent (no documented incontinence) CODE: 0 H400. BOWEL CONTINENCE (3-DAY ASSESSMENT PERIOD): Always continent CODE: 0 SIGNATURE PANEL: The following modified sections: 1. [id number] Admission Performance, 1. [id number] Admission Performance, 1. [id number] Admission Performance, 1. [id number] Admission Performance, 1. VI5594b Admission Performance, 1. [id number] Admission Performance, 1. [id number] Admission Performance, 1. [id number] Admission Performance , 1. [id number] Admission Performance, 1. [id number] Admission Performance, 1. [id number] Admission Performanc e, Q1. Does the patient use a wheelchair/scooter?, 1. [id number] Admission Performance, RR1. Indicate th e type of wheelchair/scooter used., Code, SS1. Indicate the type of wheelchair/scooter used., H350. B ladder Continence (3-day assessment period), H400. Bowel Continence (3-day assessment period) were [e lectronically] signed by Sera Real C.N.A. on SatApr 17 2019 14:30:23 [facility]-[id number] (Central Standard Time)
--- NOTE | 2019-04-17 15:11 | FAST ---
ENCOUNTER DATE AND TIME: 04/16/2019 08:00 (BASIC COMBATANT SWIMMER) NAME FARZAD CAVAZOS DATE OF : 1940 DATE OF ADMISSION: 04/10/2019 15:46 (BASIC COMBATANT SWIMMER) PHONE: AGE: 78 N# [id number] GENDER: Female ENCOUNTER PHYSICIAN: Dr. Vance Vega M.D. ADMISSION DIAGNOSIS: - Arthritis 06 - Osteoarthritis (06.2) .Osteoarthritis, Right Hip. ROLL LEFT AND RIGHT: ROLL LEFT AND RIGHT - STEP 1: Does the patient complete the activity by him/herself with no assistance (physical, verbal/nonverbal cueing, setup/clean-up)? Yes. 1. [id number] ADMISSION PERFORMANCE: Independent CODE: 06 SIT TO LYING: SIT TO LYING - STEP 1: Does the patient complete the activity by him/herself with no assistance (physical, verbal/nonverbal cueing, setup/clean-up)? Yes. 1. [id number] ADMISSION PERFORMANCE: Independent CODE: 06 LYING TO SITTING: LYING TO SITTING ON SIDE OF BED - STEP 1: Does the patient complete the activity by him/herself with no assistance (physical, verbal/nonverbal cueing, setup/clean-up)? Yes. 1. [id number] ADMISSION PERFORMANCE: Independent CODE: 06 SIT TO STAND: SIT TO STAND - STEP 1: Does the patient complete the activity by him/herself with no assistance (physical, verbal/nonverbal cueing, setup/clean-up)? Yes. 1. [id number] ADMISSION PERFORMANCE: Independent CODE: 06 TRANSFERS: BED, CHAIR: CHAIR/[id number] TRANSFER - STEP 1: Does the patient complete the activity by him/herself with no assistance (physical, verbal/nonverbal cueing, setup/clean-up)? Yes. 1. [id number] ADMISSION PERFORMANCE: Independent CODE: 06 TRANSFER TOILET: TOILET TRANSFER - STEP 1: Does the patient complete the activity by him/herself with no assistance (physical, verbal/nonverbal cueing, setup/clean-up)? Yes. 1. [id number] ADMISSION PERFORMANCE: Independent CODE: 06 TRANSFERS: CAR: Not attempted due to environmental limitations (e.g., lack of equipment, weather constraints) CODE: 10 WALK 10 FEET: WALK 10 FEET - STEP 1: Does the patient complete the activity by him/herself with no assistance (physical, verbal/nonverbal cueing, setup/clean-up)? Yes. 1. [id number] ADMISSION PERFORMANCE: Independent CODE: 06 WALK 50 FEET: WALK 50 FEET - STEP 1: Does the patient complete the activity by him/herself with no assistance (physical, verbal/nonverbal cueing, setup/clean-up)? Yes. 1. [id number] ADMISSION PERFORMANCE: Independent CODE: 06 WALK 150 FEET: WALK 150 FEET - STEP 1: Does the patient complete the activity by him/herself with no assistance (physical, verbal/nonverbal cueing, setup/clean-up)? Yes. 1. [id number] ADMISSION PERFORMANCE: Independent CODE: 06 WALK 10 FEET UNEVEN: WALKING 10 FEET ON UNEVEN SURFACES - STEP 1: Does the patient complete the activity by him/herself with no assistance (physical, verbal/nonverbal cueing, setup/clean-up)? Yes. 1. [id number] ADMISSION PERFORMANCE: Independent CODE: 06 1 STEP (CURB): 1 STEP CURB - STEP 1: Does the patient complete the activity by him/herself with no assistance (physical, verbal/nonverbal cueing, setup/clean-up)? Yes. 1. [id number] ADMISSION PERFORMANCE: Independent CODE: 06 4 STEPS: 4 STEPS - STEP 1: Does the patient complete the activity by him/herself with no assistance (physical, verbal/nonverbal cueing, setup/clean-up)? Yes. 1. [id number] ADMISSION PERFORMANCE: Independent CODE: 06 12 STEPS: 12 STEPS - STEP 1: Does the patient complete the activity by him/herself with no assistance (physical, verbal/nonverbal cueing, setup/clean-up)? Yes. 1. [id number] ADMISSION PERFORMANCE: Independent CODE: 06 PICKING UP OBJECT: PICKING UP OBJECT - STEP 1: Does the patient complete the activity by him/herself with no assistance (physical, verbal/nonverbal cueing, setup/clean-up)? No. PICKING UP OBJECT - STEP 2: Does the patient need only setup/clean-up assistance from one helper? Yes. 1. [id number] ADMISSION PERFORMANCE: Setup or clean-up assistance CODE: 05 DOES THE PATIENT USE A WHEELCHAIR/SCOOTER? Q1. DOES THE PATIENT USE A WHEELCHAIR/SCOOTER?: No CODE: 0 INDICATE THE TYPE OF WHEELCHAIR/SCOOTER USED: CODE: EXPR INDICATE THE TYPE OF WHEELCHAIR/SCOOTER USED: CODE: EXPR BLADDER AND BOWEL: CODE: EXPR CODE: EXPR SIGNATURE PANEL: The following modified sections: 1. [id number] Admission Performance, 1. [id number] Admission Performance, 1. RK5393B Admission Performance, 1. [id number] Admission Performance, 1. QO5628S Admission Performance, 1. FF9669S Admission Performance, 1. QF1242F Admission Performance, 1. [id number] Admission Performance , 1. LQ5021R Admission Performance, 1. [id number] Admission Performance, 1. BP2770S Admission Performanc e, 1. WD7518B Admission Performance, 1. ZA2729X Admission Performance, 1. [id number] Admission Performan ce, Q1. Does the patient use a wheelchair/scooter? were [electronically] signed by Franki Connors PTA on SatApr 17 2019 15:10:47 GMT-0600 (Central Standard Time)
--- NOTE | 2019-04-17 16:47 | FAST ---
ENCOUNTER DATE AND TIME: 04/17/2019 08:00 (LIQUID COMPOUNDER) NAME FARZAD CAVAZOS DATE OF : 1940 DATE OF ADMISSION: 04/10/2019 15:46 (LIQUID COMPOUNDER) PHONE: AGE: 78 N# [id number] GENDER: Female ENCOUNTER PHYSICIAN: Dr. Vance Vega M.D. ADMISSION DIAGNOSIS: - Arthritis 06 - Osteoarthritis (06.2) .Osteoarthritis, Right Hip. EATING: Not assessed/no information CODE: - ORAL HYGIENE: ORAL HYGIENE - STEP 1: Does the patient complete the activity by him/herself with no assistance (physical, verbal/nonverbal cueing, setup/clean-up)? Yes. 1. [id number] ADMISSION PERFORMANCE: Independent CODE: 06 TOILETING HYGIENE: TOILETING HYGIENE - STEP 1: Does the patient complete the activity by him/herself with no assistance (physical, verbal/nonverbal cueing, setup/clean-up)? Yes. 1. [id number] ADMISSION PERFORMANCE: Independent CODE: 06 BATHING: SHOWER/BATHE SELF - STEP 1: Does the patient complete the activity by him/herself with no assistance (physical, verbal/nonverbal cueing, setup/clean-up)? No. SHOWER/BATHE SELF - STEP 2: Does the patient need only setup/clean-up assistance from one helper? Yes. 1. [id number] ADMISSION PERFORMANCE: Setup or clean-up assistance CODE: 05 DRESSING - UPPER BODY: DRESSING - UPPER BODY - STEP 1: Does the patient complete the activity by him/herself with no assistance (physical, verbal/nonverbal cueing, setup/clean-up)? Yes. 1. [id number] ADMISSION PERFORMANCE: Independent CODE: 06 DRESSING - LOWER BODY: DRESSING - LOWER BODY - STEP 1: Does the patient complete the activity by him/herself with no assistance (physical, verbal/nonverbal cueing, setup/clean-up)? No. DRESSING - LOWER BODY - STEP 2: Does the patient need only setup/clean-up assistance from one helper? Yes. 1. [id number] ADMISSION PERFORMANCE: Setup or clean-up assistance CODE: 05 PUTTING ON/TAKING OFF FOOTWEAR: FOOTWEAR - STEP 1: Does the patient complete the activity by him/herself with no assistance (physical, verbal/nonverbal cueing, setup/clean-up)? No. FOOTWEAR - STEP 2: Does the patient need only setup/clean-up assistance from one helper? No. FOOTWEAR - STEP 3: Does the patient need only verbal/nonverbal cueing or touching/steadying/contact guard assistance fro m one helper? Yes. 1. [id number] ADMISSION PERFORMANCE: Supervision or touching assistance CODE: 04 DOES THE PATIENT USE A WHEELCHAIR/SCOOTER? CODE: EXPR INDICATE THE TYPE OF WHEELCHAIR/SCOOTER USED: CODE: EXPR INDICATE THE TYPE OF WHEELCHAIR/SCOOTER USED: CODE: EXPR BLADDER AND BOWEL: CODE: EXPR CODE: EXPR SIGNATURE PANEL: The following modified sections: 1. [id number] Admission Performance, 1. EZ5636D Admission Performance, 1. MO8489j Admission Performance, 1. ME6419b Admission Performance, 1. FS6197c Admission Performance, 1. WW6148n Admission Performance were [electronically] signed by Flores Horton OT on SatApr 17 2019 16:46:19 GMT-0600 (Central Standard Time)
[2019-04-17] MEDS: RIVAROXABAN 10 MG TABLET PO SCH (17:14)
[2019-04-17] MEDS: ALPRAZOLAM 0.25 MG TABLET PO SCH (20:49)
--- NOTE | 2019-04-18 02:11 | FAST ---
SHIFT START DATE/TIME: 04/17/2019 19:00 (TEST BORER HELPER) SHIFT END DATE/TIME: 04/18/2019 07:00 (TEST BORER HELPER) NAME FARZAD CAVAZOS DATE OF : 1940 DATE OF ADMISSION: 04/10/2019 15:46 (TEST BORER HELPER) PHONE: AGE: 78 N# [id number] GENDER: Female ENCOUNTER PHYSICIAN: Dr. Vance Vega M.D. ADMISSION DIAGNOSIS: - Arthritis 06 - Osteoarthritis (06.2) .Osteoarthritis, Right Hip. EATING: Not assessed/no information CODE: - ORAL HYGIENE: ORAL HYGIENE - STEP 1: Does the patient complete the activity by him/herself with no assistance (physical, verbal/nonverbal cueing, setup/clean-up)? No. ORAL HYGIENE - STEP 2: Does the patient need only setup/clean-up assistance from one helper? Yes. 1. [id number] ADMISSION PERFORMANCE: Setup or clean-up assistance CODE: 05 TOILETING HYGIENE: TOILETING HYGIENE - STEP 1: Does the patient complete the activity by him/herself with no assistance (physical, verbal/nonverbal cueing, setup/clean-up)? No. TOILETING HYGIENE - STEP 2: Does the patient need only setup/clean-up assistance from one helper? No. TOILETING HYGIENE - STEP 3: Does the patient need only verbal/nonverbal cueing or touching/steadying/contact guard assistance fro m one helper? Yes. 1. [id number] ADMISSION PERFORMANCE: Supervision or touching assistance CODE: 04 BATHING: Not assessed/no information CODE: - DRESSING - UPPER BODY: Not assessed/no information CODE: - DRESSING - LOWER BODY: Not assessed/no information CODE: - PUTTING ON/TAKING OFF FOOTWEAR: Not assessed/no information CODE: - ROLL LEFT AND RIGHT: ROLL LEFT AND RIGHT - STEP 1: Does the patient complete the activity by him/herself with no assistance (physical, verbal/nonverbal cueing, setup/clean-up)? No. ROLL LEFT AND RIGHT - STEP 2: Does the patient need only setup/clean-up assistance from one helper? No. ROLL LEFT AND RIGHT - STEP 3: Does the patient need only verbal/nonverbal cueing or touching/steadying/contact guard assistance fro m one helper? Yes. 1. [id number] ADMISSION PERFORMANCE: Supervision or touching assistance CODE: 04 SIT TO LYING: SIT TO LYING - STEP 1: Does the patient complete the activity by him/herself with no assistance (physical, verbal/nonverbal cueing, setup/clean-up)? No. SIT TO LYING - STEP 2: Does the patient need only setup/clean-up assistance from one helper? No. SIT TO LYING - STEP 3: Does the patient need only verbal/nonverbal cueing or touching/steadying/contact guard assistance fro m one helper? Yes. 1. [id number] ADMISSION PERFORMANCE: Supervision or touching assistance CODE: 04 LYING TO SITTING: LYING TO SITTING ON SIDE OF BED - STEP 1: Does the patient complete the activity by him/herself with no assistance (physical, verbal/nonverbal cueing, setup/clean-up)? No. LYING TO SITTING ON SIDE OF BED - STEP 2: Does the patient need only setup/clean-up assistance from one helper? No. LYING TO SITTING ON SIDE OF BED - STEP 3: Does the patient need only verbal/nonverbal cueing or touching/steadying/contact guard assistance fro m one helper? Yes. 1. [id number] ADMISSION PERFORMANCE: Supervision or touching assistance CODE: 04 SIT TO STAND: SIT TO STAND - STEP 1: Does the patient complete the activity by him/herself with no assistance (physical, verbal/nonverbal cueing, setup/clean-up)? No. SIT TO STAND - STEP 2: Does the patient need only setup/clean-up assistance from one helper? No. SIT TO STAND - STEP 3: Does the patient need only verbal/nonverbal cueing or touching/steadying/contact guard assistance fro m one helper? Yes. 1. [id number] ADMISSION PERFORMANCE: Supervision or touching assistance CODE: 04 TRANSFERS: BED, CHAIR: CHAIR/[id number] TRANSFER - STEP 1: Does the patient complete the activity by him/herself with no assistance (physical, verbal/nonverbal cueing, setup/clean-up)? No. CHAIR/[id number] TRANSFER - STEP 2: Does the patient need only setup/clean-up assistance from one helper? No. CHAIR/[id number] TRANSFER - STEP 3: Does the patient need only verbal/nonverbal cueing or touching/steadying/contact guard assistance fro m one helper? Yes. 1. [id number] ADMISSION PERFORMANCE: Supervision or touching assistance CODE: 04 TRANSFER TOILET: TOILET TRANSFER - STEP 1: Does the patient complete the activity by him/herself with no assistance (physical, verbal/nonverbal cueing, setup/clean-up)? No. TOILET TRANSFER - STEP 2: Does the patient need only setup/clean-up assistance from one helper? No. TOILET TRANSFER - STEP 3: Does the patient need only verbal/nonverbal cueing or touching/steadying/contact guard assistance fro m one helper? Yes. 1. [id number] ADMISSION PERFORMANCE: Supervision or touching assistance CODE: 04 TRANSFERS: CAR: Not assessed/no information CODE: - WALK 10 FEET: Not assessed/no information CODE: - 1 STEP (CURB): Not assessed/no information CODE: - PICKING UP OBJECT: Not assessed/no information CODE: - DOES THE PATIENT USE A WHEELCHAIR/SCOOTER? CODE: EXPR WHEEL 50 FEET WITH TWO TURNS: Not assessed/no information CODE: - INDICATE THE TYPE OF WHEELCHAIR/SCOOTER USED: CODE: EXPR WHEEL 150 FEET: Not assessed/no information CODE: - INDICATE THE TYPE OF WHEELCHAIR/SCOOTER USED: CODE: EXPR BLADDER AND BOWEL: H350. BLADDER CONTINENCE (3-DAY ASSESSMENT PERIOD): Stress incontinence only CODE: 1 H400. BOWEL CONTINENCE (3-DAY ASSESSMENT PERIOD): Always continent CODE: 0
[2019-04-18 05:47] VITALS: BMI 23.8
[2019-04-18] MEDS: LEVOTHYROXINE SOD 0.075 MG TAB PO SCH (06:27)
[2019-04-18] MEDS: PANTOPRAZOLE 40MG TABLET PO SCH ×2 (06:27→16:16)
[2019-04-18] MEDS: HYDROCODONE/APAP 7.5/325 MG TAB PO PRN ×2 (08:20→20:28)
[2019-04-18] MEDS: AMLODIPINE 5 MG TAB PO SCH (08:21)
[2019-04-18] MEDS: CEPHALEXIN 500 MG CAP PO SCH ×3 (08:22→20:22)
[2019-04-18] MEDS: GABAPENTIN 100 MG CAP PO SCH ×2 (08:22→20:22)
[2019-04-18] MEDS: MULTIVITAMIN TAB PO SCH (08:22)
[2019-04-18] MEDS: FE SULF/FA/VIT B COMP & C TAB PO SCH (08:22)
[2019-04-18] MEDS: FOLBIC 1 TAB PO SCH (08:22)
[2019-04-18] MEDS: DOCUSATE NA/SENNA CONC 1 TAB PO SCH ×2 (08:22→20:23)
[2019-04-18] MEDS: LACTOBACILLUS/ACIDOPHILUS TAB PO SCH (08:22)
[2019-04-18] MEDS: PROMOD 30 ML DOSE PO SCH ×2 (08:23→20:23)
[2019-04-18] MEDS: CALCIUM CARB 500MG/VIT D 200 IU TAB PO SCH (08:24)
[2019-04-18] MEDS ORDERED: BISACODYL 10 MG RECTAL SUPP PR ONE (10:00)
[2019-04-18 10:18] LABS: Urine Appearance CLEAR; Urine Bilirubin NEGATIVE (NEG); Urine Blood NEGATIVE (NEG); Urine Color YELLOW; Urine Glucose NEGATIVE (NEG); Urine Protein NEGATIVE (NEG); Urine Specific Gravity 1.015 (1.005-1.030); Urine Urobilinogen 0.2 mg/dL (0.2-1.0)
[2019-04-18 10:40] LABS: Urine Bacteria <20 /HPF (<20); Urine RBC <5 /HPF (NONE SEEN)
[2019-04-18 10:41] LABS: Urine Culture Reflex Order NOT NEEDED
[2019-04-18] MEDS: MAGNESIUM HYDROXIDE 8% 30 ML PO PRN (13:12)
--- NOTE | 2019-04-18 14:29 | PN ---
Date of Progress Note: 04/18/2019 Subjective: Patient was seen this morning for followup. She was sitting in her wheelchair. Denied a ny complaints. She has not had a bowel movement in the last 3 days or so. Objective: Vital Signs: Reviewed. HEENT: Unremarkable. Lungs: Clear to auscultation. Heart: Sounds normal. Abdomen: Soft. Bowel sounds normal. No guarding, rigidity, tenderness, or distention. Extremities: Leg edema, slightly better today than last couple of days. Impression: 1.Cellulitis, right foot, great toe. 2.Ingrowing toenail. 3.Constipation. Plan: We will continue current cephalexin that was started a couple of days ago because of celluliti s of the right great toe related to ingrowing toenail. Patient will receive Dulcolax rectal supposit ory per order today. She reported that last night she had frequent urination, but no dysuria. We wi ll go ahead and get a urinalysis to rule out any UTI and I will see her tomorrow for followup. CELSA/MODL Voice ID: [id number] Report ID: [id number]
[2019-04-18] MEDS: RIVAROXABAN 10 MG TABLET PO SCH (16:16)
[2019-04-18] MEDS: ALPRAZOLAM 0.25 MG TABLET PO SCH (22:00)
[2019-04-19] MEDS: MELATONIN 3 MG TABLET PO PRN (01:04)
[2019-04-19] MEDS: LEVOTHYROXINE SOD 0.075 MG TAB PO SCH (06:32)
[2019-04-19] MEDS: PANTOPRAZOLE 40MG TABLET PO SCH ×2 (06:32→16:20)
[2019-04-19] MEDS: HYDROCODONE/APAP 7.5/325 MG TAB PO PRN ×2 (08:04→20:30)
[2019-04-19] MEDS: MULTIVITAMIN TAB PO SCH (08:06)
[2019-04-19] MEDS: FOLBIC 1 TAB PO SCH (08:06)
[2019-04-19] MEDS: FE SULF/FA/VIT B COMP & C TAB PO SCH (08:06)
[2019-04-19] MEDS: GABAPENTIN 100 MG CAP PO SCH ×2 (08:06→20:30)
[2019-04-19] MEDS: LACTOBACILLUS/ACIDOPHILUS TAB PO SCH (08:06)
[2019-04-19] MEDS: CEPHALEXIN 500 MG CAP PO SCH ×3 (08:06→20:30)
[2019-04-19] MEDS: DOCUSATE NA/SENNA CONC 1 TAB PO SCH ×2 (08:06→20:30)
[2019-04-19] MEDS: PROMOD 30 ML DOSE PO SCH ×3 (08:07→20:30)
[2019-04-19] MEDS: AMLODIPINE 5 MG TAB PO SCH (08:08)
[2019-04-19] MEDS: CALCIUM CARB 500MG/VIT D 200 IU TAB PO SCH (08:09)
[2019-04-19] MEDS: MAGNESIUM HYDROXIDE 8% 30 ML PO PRN (14:57)
[2019-04-19] MEDS: RIVAROXABAN 10 MG TABLET PO SCH (16:21)
--- NOTE | 2019-04-19 16:24 | PN ---
Date of Progress Note: 04/19/2019 Subjective: Patient was seen this morning for followup. She was sitting in a wheelchair. Denied an y complaints, except some leg swelling. Had a bowel movement yesterday. Denies any abdominal pain, nausea, vomiting. Objective: Vital signs: Reviewed. HEENT: Unremarkable. Lungs: Clear to auscultation. Heart: Sounds normal. Abdomen: Soft. Bowel sounds normal. No guarding, rigidity, tenderness, or distention. Extremities: Right leg edema present. Impression: 1.Right leg edema. 2.Constipation. 3.Osteoarthritis, multiple sites. Plan: We will continue current stool softener and laxative per order. Continue current pain medicat ions. Venous Doppler was negative done this week. No need for any further intervention for the leg edema. With time, it should improve and patient was reassured about that. Continue current DVT prop hylaxis. Continue current antibiotic for cellulitis of the right foot, great toe, and patient report s that is improving very well. CELSA/MODL Voice ID: [id number] Report ID: [id number]
[2019-04-19] MEDS: ALPRAZOLAM 0.25 MG TABLET PO SCH (21:32)
[2019-04-20] MEDS: PANTOPRAZOLE 40MG TABLET PO SCH ×2 (07:21→16:16)
[2019-04-20] MEDS: LEVOTHYROXINE SOD 0.075 MG TAB PO SCH (07:21)
[2019-04-20] MEDS: AMLODIPINE 5 MG TAB PO SCH (08:00)
[2019-04-20] MEDS: CALCIUM CARB 500MG/VIT D 200 IU TAB PO SCH (08:00)
[2019-04-20] MEDS: PROMOD 30 ML DOSE PO SCH ×2 (08:00→20:10)
[2019-04-20] MEDS: FE SULF/FA/VIT B COMP & C TAB PO SCH (08:07)
[2019-04-20] MEDS: MULTIVITAMIN TAB PO SCH (08:07)
[2019-04-20] MEDS: DOCUSATE NA/SENNA CONC 1 TAB PO SCH ×2 (08:07→20:10)
[2019-04-20] MEDS: FOLBIC 1 TAB PO SCH (08:07)
[2019-04-20] MEDS: LACTOBACILLUS/ACIDOPHILUS TAB PO SCH (08:07)
[2019-04-20] MEDS: GABAPENTIN 100 MG CAP PO SCH ×2 (08:07→20:10)
[2019-04-20] MEDS: CEPHALEXIN 500 MG CAP PO SCH ×3 (08:07→20:10)
[2019-04-20] MEDS: HYDROCODONE/APAP 7.5/325 MG TAB PO PRN (08:09)
--- NOTE | 2019-04-20 16:03 | FAST ---
SHIFT START DATE/TIME: 04/20/2019 07:00 (STOREKEEPER ENGINEERING) SHIFT END DATE/TIME: 04/20/2019 19:00 (STOREKEEPER ENGINEERING) NAME FARZAD CAVAZOS DATE OF : 1940 DATE OF ADMISSION: 04/10/2019 15:46 (STOREKEEPER ENGINEERING) PHONE: AGE: 78 N# [id number] GENDER: Female ENCOUNTER PHYSICIAN: Dr. Vance Vega M.D. ADMISSION DIAGNOSIS: - Arthritis 06 - Osteoarthritis (06.2) .Osteoarthritis, Right Hip. EATING: EATING - STEP 1: Does the patient complete the activity by him/herself with no assistance (physical, verbal/nonverbal cueing, setup/clean-up)? Yes. 1. [id number] ADMISSION PERFORMANCE: Independent CODE: 06 ORAL HYGIENE: ORAL HYGIENE - STEP 1: Does the patient complete the activity by him/herself with no assistance (physical, verbal/nonverbal cueing, setup/clean-up)? Yes. 1. [id number] ADMISSION PERFORMANCE: Independent CODE: 06 TOILETING HYGIENE: TOILETING HYGIENE - STEP 1: Does the patient complete the activity by him/herself with no assistance (physical, verbal/nonverbal cueing, setup/clean-up)? Yes. 1. [id number] ADMISSION PERFORMANCE: Independent CODE: 06 BATHING: Not assessed/no information CODE: - DRESSING - UPPER BODY: DRESSING - UPPER BODY - STEP 1: Does the patient complete the activity by him/herself with no assistance (physical, verbal/nonverbal cueing, setup/clean-up)? No. DRESSING - UPPER BODY - STEP 2: Does the patient need only setup/clean-up assistance from one helper? No. DRESSING - UPPER BODY - STEP 3: Does the patient need only verbal/nonverbal cueing or touching/steadying/contact guard assistance fro m one helper? Yes. 1. [id number] ADMISSION PERFORMANCE: Supervision or touching assistance CODE: 04 DRESSING - LOWER BODY: DRESSING - LOWER BODY - STEP 1: Does the patient complete the activity by him/herself with no assistance (physical, verbal/nonverbal cueing, setup/clean-up)? No. DRESSING - LOWER BODY - STEP 2: Does the patient need only setup/clean-up assistance from one helper? No. DRESSING - LOWER BODY - STEP 3: Does the patient need only verbal/nonverbal cueing or touching/steadying/contact guard assistance fro m one helper? Yes. 1. [id number] ADMISSION PERFORMANCE: Supervision or touching assistance CODE: 04 PUTTING ON/TAKING OFF FOOTWEAR: FOOTWEAR - STEP 1: Does the patient complete the activity by him/herself with no assistance (physical, verbal/nonverbal cueing, setup/clean-up)? No. FOOTWEAR - STEP 2: Does the patient need only setup/clean-up assistance from one helper? Yes. 1. [id number] ADMISSION PERFORMANCE: Setup or clean-up assistance CODE: 05 DOES THE PATIENT USE A WHEELCHAIR/SCOOTER? CODE: EXPR INDICATE THE TYPE OF WHEELCHAIR/SCOOTER USED: CODE: EXPR INDICATE THE TYPE OF WHEELCHAIR/SCOOTER USED: CODE: EXPR BLADDER AND BOWEL: H350. BLADDER CONTINENCE (3-DAY ASSESSMENT PERIOD): Always continent (no documented incontinence) CODE: 0 H400. BOWEL CONTINENCE (3-DAY ASSESSMENT PERIOD): Always continent CODE: 0 SIGNATURE PANEL: The following modified sections: 1. [id number] Admission Performance, 1. [id number] Admission Performance, 1. RN3720P Admission Performance, 1. ZW5619j Admission Performance, 1. BY6562t Admission Performance, 1. FB1735k Admission Performance, 1. MV2177k Admission Performance, 1. UG3520a Admission Performance , H350. Bladder Continence (3-day assessment period), H400. Bowel Continence (3-day assessment period ) were [electronically] signed by Sera Real CJesusN.Jose Armando on SatApr 20 2019 16:02:23 T-0600 (Central Standard Time)
[2019-04-20] MEDS: RIVAROXABAN 10 MG TABLET PO SCH (16:15)
[2019-04-20] MEDS: MAGNESIUM HYDROXIDE 8% 30 ML PO PRN (16:19)
--- NOTE | 2019-04-20 17:51 | R.PN ---
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 SUBJECTIVE: Pt denied any Shortness of Breath. Pt denied any depression. Bed mobility and transfers done with standby assistance. Up and down 15 steps with bilateral handrail s with independence. Ambulated 750' with independence using a rolling walker. Hgb 10.4 and Plt 444, prealbumin improved to 13.1 from 8.4, 5 days ago. VITAL SIGNS Temperature: 97.7 F SBP/DBP: 141/65 Pulse: 68 Resp: 16 MEDICATION ALLERGIES: Erythromycin Levofloxacin Penicillin Meperidine HCl Sulfa ENVIRONMENTAL ALLERGIES: Shellfish - Substance Allergies None Known - Other Allergies None Known NURSING: - Shower allowing shower ACTIVITIES OOB only with supervision THERAPIES: - Orthotics/Prosthetics Orthotic Evaluation. Splinting/Casting. - Dietary and Nutrition Adequate Nutrition. Nutritional Education. Nutritional Supplements. PHYSICAL EXAM - Gen Alert and awake Lying in bed No apparent distress Oriented to: person, time, and place - Skin No skin breakdown. Normacephalic - Eyes No abnormalities - ENMT No abnormalities - Neck No abnormalities - CVS RRR - Chest Clear - Abd Soft - GI Non distended Deferred - No abnormalities - Ext Mild postoperative edema in the right lower extremity Right hip surgical site has good hemostasis. - MSK 4+/5 weakness in right lower extremity - Neuro 4/5 strength right lower extremity. - Psych No abnormalities ASSESSMENT: Pt. is a 78 yo Right-handed white female.On 04/07/2019 she was admitted to [facility] with diagnosis .Osteoarthritis, Right Hip.Her impairment category is Arthritis 06 - Osteoarthritis (06.2).Pre-morbidly, Pt. was independent/mod-I in Locomotion, Safety Awareness, Balance, Social Cogni tion, Transfers Control, Sphincter Control, Self-Care, Communication, and Endurance; and she had good Locomotion, Safety Awareness, Balance, Social Cognition, Transfers Control, Sphincter Control, Self- Care, Communication, and Endurance.Currently, she has deficits of Locomotion, Safety Awareness, Ame ce, Social Cognition, Transfers Control, Self-Care, and Endurance.Pt. is now referred to [facility] for acute in-patient rehabilitation in order to maximize patient's functional i ndependence in activities of daily living, strength, ROM, and mobility.- Rehab Goal Patient has realistic goal of being discharged at assistance level 6-Saida to reside at Home with Fam estefani/Relatives. MDM/PLAN: - Physical Therapy Gait dysfunction - to improve, our physical therapists will perform initial evaluation of pt's statu s upon admission and devise an individualized program for Gait Training, and Wheel Chair mobility Inability to transfer - to improve, our physical therapists will perform initial evaluation of pt's status upon admission and devise an individualized program for Bed mobility Need for home safety evaluation - to improve, our physical therapists will perform initial evaluatio n of pt's status upon admission and devise an individualized program for Home Evaluation Need in caregiver upon discharge - to improve, our physical therapists will perform initial evaluati on of pt's status upon admission and devise an individualized program for Caregiver Training New precaution - to improve, our physical therapists will perform initial evaluation of pt's status upon admission and devise an individualized program for Patient precaution education Edema - to improve, our physical therapists will perform initial evaluation of pt's status upon admi ssion and devise an individualized program for Elevation Training, and Lymphedema Therapy Poor balance - to improve, our physical therapists will perform initial evaluation of pt's status up on admission and devise an individualized program for Balance Training Poor endurance - to improve, our physical therapists will perform initial evaluation of pt's status upon admission and devise an individualized program for Endurance Training Weakness - to improve, our physical therapists will perform initial evaluation of pt's status upon a dmission and devise an individualized program for Aquatic Therapy, Neuromuscular Reeducation, and Str engthening Achieving independence - to improve, our physical therapists will perform initial evaluation of pt's status upon admission and devise an individualized program for Community Reintegration Activities - Occupational Therapy ADL deficits - to improve, our occupation therapists will perform initial evaluation of pt's status upon admission and devise an individualized program for Bathing, Bed mobility, Community Reintegratio n, Cooking, Dressing, Eating, Fine Motor Skills, Grooming, Homemaking, Kitchen Mobility, Laundry, Pat ient Education, Safety Awareness, Splinting - Positioning, Transfers(Toilet, Tub, Shower), and Wheel Chair Management Cognitive deficits - to improve, our occupation therapists will perform initial evaluation of pt's s tatus upon admission and devise an individualized program for Cognition - orientation Need for patient care technician instructor - to improve, our occupation therapists will perform initial evaluation of pt's status upon admission and devise an individualized program for Caregiver Training Weakness - to improve, our occupation therapists will perform initial evaluation of pt's status upon admission and devise an individualized program for Aquatic Therapy, Balance, Endurance, UE ROM, and UE strengthening - Other See attached MAR (Medication Administration Record) - Diet Type Continue Regular - Diet - Liquid Texture Continue Regular - Tube Feed Continue N/A - Diet - Solid Texture Continue Regular - Shower allowing shower FUNCTIONAL STATUS: UPDATED AT WEEKLY TEAM CONFERENCE - Bladder Same accident frequency: 7-Ind - No accidents in the past 7 days - Bowel Same accident frequency: 7-Ind - No accidents in the past 7 days - Walking Same score based on distance walked: 0(N/A) Same score based on distance walked: 1(<=50ft) - Wheelchair Same score based on distance traveled: 0(N/A) FUNCTIONAL STATUS: - Self-Care A. Eating Saida B. Grooming Saida C. Bathing Buck D. Dressing - Upper sup E. Dressing - Lower Buck F. Toileting Buck - Sphincter Control G. Bladder control sup H. Bowel control sup - Transfers Control I. Bed/Chair/Wheelchair Buck J. Toilet sup K. Tub/Shower sup - Locomotion L. Walk/Wheelchair (B) sup M. Stairs sup - Communication N. Comprehension (B) Saida O. Expression (B) Saida - Social Cognition P. Social Interaction Saida Q. Problem Solving Saida R. Memory Saida - Endurance Good - Balance Good - Safety Awareness Good QI SCORES: - Self-Care A. Eating 05-Setup or clean-up assistance B. Oral hygiene 05-Setup or clean-up assistance C. Toileting hygiene 03-Partial/moderate assistance E. Shower/bathe self 03-Partial/moderate assistance F. Upper body dressing 04-Supervision or touching assistance G. Lower body dressing 02-Substantial/maximal assistance H. Putting on/taking off footwear 02-Substantial/maximal assistance - Mobility A. Roll left and right 03-Partial/moderate assistance B. Sit to lying 03-Partial/moderate assistance C. Lying to sitting on side of bed 03-Partial/moderate assistance D. Sit to stand 03-Partial/moderate assistance E. Chair/lnf-he-ifkwl transfer 03-Partial/moderate assistance F. Toilet transfer 03-Partial/moderate assistance G. Car transfer 88-Not attempted due to medical condition or safety concerns I. Walk 10 feet 02-Substantial/maximal assistance J. Walk 50 feet with two turns 88-Not attempted due to medical condition or safety concerns K. Walk 150 feet 88-Not attempted due to medical condition or safety concerns L. Walking 10 feet on uneven surfaces 88-Not attempted due to medical condition or safety concerns M. 1 step (curb) 88-Not attempted due to medical condition or safety concerns N. 4 steps 88-Not attempted due to medical condition or safety concerns O. 12 steps 88-Not attempted due to medical condition or safety concerns P. Picking up object 88-Not attempted due to medical condition or safety concerns R. Wheel 50 feet with two turns 88-Not attempted due to medical condition or safety concerns S. Wheel 150 feet 88-Not attempted due to medical condition or safety concerns - Bladder and Bowel Bladder continence 0-Always continent Bowel continence 0-Always continent - Endurance Poor - Balance Poor - Safety Awareness Fair CURRENT FUNC. DEFICITS: Self-Care, Mobility, Endurance, Balance, and Safety Awareness SIGNATURE PANEL: (BEATER ENGINEER HELPER)
[2019-04-20] MEDS: ALPRAZOLAM 0.25 MG TABLET PO SCH (21:54)
[2019-04-20] MEDS: CODEINE 30MG/APAP 300MG TAB PO PRN (21:54)
--- NOTE | 2019-04-20 23:49 | PN ---
Date of Progress Note: 04/20/2019 Subjective: Patient was seen this morning for followup. No new complaints or problems reported by renny emanuel. She was sitting in wheelchair, denied any complaints. Objective: Vital Signs: Reviewed. HEENT: Unremarkable. Lungs: Clear to auscultation. Heart: Sounds normal. Abdomen: Soft. Bowel sounds normal. No guarding, rigidity, tenderness, or distention. Extremities: Right leg edema present. Impression: 1.Osteoarthritis, multiple sites. 2.Leg edema. 3.Constipation. Plan: We will continue current medication. Patient did not have any bowel movement yesterday. We w ill see if she has any bowel movement today or not. Otherwise, tomorrow she was advised to request D ulcolax rectal suppository. Continue current DVT prophylaxis, physical therapy under guidance of Dr. Vega. She is scheduled to go home day after tomorrow. CELSA/MODL Voice ID: [id number] Report ID: [id number]
[2019-04-21] MEDS: PANTOPRAZOLE 40MG TABLET PO SCH ×2 (06:56→16:23)
[2019-04-21] MEDS: LEVOTHYROXINE SOD 0.075 MG TAB PO SCH (06:56)
[2019-04-21] MEDS: AMLODIPINE 5 MG TAB PO SCH (08:00)
[2019-04-21] MEDS: CALCIUM CARB 500MG/VIT D 200 IU TAB PO SCH (08:00)
[2019-04-21] MEDS: PROMOD 30 ML DOSE PO SCH ×2 (08:00→19:42)
[2019-04-21] MEDS: LACTOBACILLUS/ACIDOPHILUS TAB PO SCH (08:31)
[2019-04-21] MEDS: MULTIVITAMIN TAB PO SCH (08:31)
[2019-04-21] MEDS: GABAPENTIN 100 MG CAP PO SCH ×2 (08:31→19:41)
[2019-04-21] MEDS: CEPHALEXIN 500 MG CAP PO SCH ×3 (08:31→19:41)
[2019-04-21] MEDS: FOLBIC 1 TAB PO SCH (08:31)
[2019-04-21] MEDS: DOCUSATE NA/SENNA CONC 1 TAB PO SCH ×2 (08:31→19:42)
[2019-04-21] MEDS: FE SULF/FA/VIT B COMP & C TAB PO SCH (08:31)
[2019-04-21] MEDS: CODEINE 30MG/APAP 300MG TAB PO PRN ×2 (08:32→19:46)
[2019-04-21] MEDS: ONDANSETRON 4 MG (ODT) TAB PO PRN (10:06)
[2019-04-21] MEDS: RIVAROXABAN 10 MG TABLET PO SCH (16:23)
[2019-04-21] MEDS: MELATONIN 3 MG TABLET PO PRN (19:41)
[2019-04-21] MEDS: ALPRAZOLAM 0.25 MG TABLET PO SCH (19:41)
[2019-04-21] MEDS: MAGNESIUM HYDROXIDE 8% 30 ML PO PRN (20:30)
--- NOTE | 2019-04-21 21:41 | PN ---
Date of Progress Note: 04/21/2019 Subjective: Patient was seen this morning for followup. She was sitting in wheelchair, denied any c omplaints. Had a bowel movement yesterday. Objective: Vital Signs: Reviewed. HEENT: Unremarkable. Lungs: Clear to auscultation. Heart: Heart sounds normal. Abdomen: Soft, bowel sounds normal. No guarding, rigidity, tenderness, or distention. Extremities: Leg edema unchanged. Impression: 1.Osteoarthritis, multiple sites. 2.Constipation. 3.Hypertension. Plan: We will continue current medications. Continue current DVT prophylaxis. Stool softener and l axative. Physical therapy to be provided under guidance of Dr. Vega. I will see her tomorrow fo r followup. She is scheduled to go home tomorrow. CELSA/MODL Voice ID: [id number] Report ID: [id number]
[2019-04-22 06:57] VITALS: BP 131/62; TEMP 97.4
[2019-04-22] MEDS: PANTOPRAZOLE 40MG TABLET PO SCH (06:59)
[2019-04-22] MEDS: LEVOTHYROXINE SOD 0.075 MG TAB PO SCH (06:59)
[2019-04-22] MEDS: PROMOD 30 ML DOSE PO SCH (08:00)
[2019-04-22] MEDS: AMLODIPINE 5 MG TAB PO SCH (08:00)
[2019-04-22] MEDS: MULTIVITAMIN TAB PO SCH (08:14)
[2019-04-22] MEDS: DOCUSATE NA/SENNA CONC 1 TAB PO SCH (08:14)
[2019-04-22] MEDS: FOLBIC 1 TAB PO SCH (08:14)
[2019-04-22] MEDS: GABAPENTIN 100 MG CAP PO SCH (08:14)
[2019-04-22] MEDS: LACTOBACILLUS/ACIDOPHILUS TAB PO SCH (08:14)
[2019-04-22] MEDS: CALCIUM CARB 500MG/VIT D 200 IU TAB PO SCH (08:14)
[2019-04-22] MEDS: CEPHALEXIN 500 MG CAP PO SCH (08:14)
[2019-04-22] MEDS: CODEINE 30MG/APAP 300MG TAB PO PRN (08:19)
--- NOTE | 2019-04-22 14:49 | FAST ---
SHIFT START DATE/TIME: 04/22/2019 07:00 (WOOD TURNER) SHIFT END DATE/TIME: 04/22/2019 19:00 (WOOD TURNER) NAME FARZAD CAVAZOS DATE OF : 1940 DATE OF ADMISSION: 04/10/2019 15:46 (WOOD TURNER) PHONE: AGE: 78 N# [id number] GENDER: Female ENCOUNTER PHYSICIAN: Dr. Vance Vega M.D. ADMISSION DIAGNOSIS: - Arthritis 06 - Osteoarthritis (06.2) .Osteoarthritis, Right Hip. EATING: EATING - STEP 1: Does the patient complete the activity by him/herself with no assistance (physical, verbal/nonverbal cueing, setup/clean-up)? Yes. 1. [id number] ADMISSION PERFORMANCE: Independent CODE: 06 ORAL HYGIENE: ORAL HYGIENE - STEP 1: Does the patient complete the activity by him/herself with no assistance (physical, verbal/nonverbal cueing, setup/clean-up)? Yes. 1. [id number] ADMISSION PERFORMANCE: Independent CODE: 06 TOILETING HYGIENE: TOILETING HYGIENE - STEP 1: Does the patient complete the activity by him/herself with no assistance (physical, verbal/nonverbal cueing, setup/clean-up)? Yes. 1. [id number] ADMISSION PERFORMANCE: Independent CODE: 06 BATHING: Not assessed/no information CODE: - DRESSING - UPPER BODY: DRESSING - UPPER BODY - STEP 1: Does the patient complete the activity by him/herself with no assistance (physical, verbal/nonverbal cueing, setup/clean-up)? No. DRESSING - UPPER BODY - STEP 2: Does the patient need only setup/clean-up assistance from one helper? No. DRESSING - UPPER BODY - STEP 3: Does the patient need only verbal/nonverbal cueing or touching/steadying/contact guard assistance fro m one helper? Yes. 1. [id number] ADMISSION PERFORMANCE: Supervision or touching assistance CODE: 04 DRESSING - LOWER BODY: DRESSING - LOWER BODY - STEP 1: Does the patient complete the activity by him/herself with no assistance (physical, verbal/nonverbal cueing, setup/clean-up)? No. DRESSING - LOWER BODY - STEP 2: Does the patient need only setup/clean-up assistance from one helper? No. DRESSING - LOWER BODY - STEP 3: Does the patient need only verbal/nonverbal cueing or touching/steadying/contact guard assistance fro m one helper? Yes. 1. [id number] ADMISSION PERFORMANCE: Supervision or touching assistance CODE: 04 PUTTING ON/TAKING OFF FOOTWEAR: FOOTWEAR - STEP 1: Does the patient complete the activity by him/herself with no assistance (physical, verbal/nonverbal cueing, setup/clean-up)? No. FOOTWEAR - STEP 2: Does the patient need only setup/clean-up assistance from one helper? Yes. 1. [id number] ADMISSION PERFORMANCE: Setup or clean-up assistance CODE: 05 DOES THE PATIENT USE A WHEELCHAIR/SCOOTER? CODE: EXPR INDICATE THE TYPE OF WHEELCHAIR/SCOOTER USED: CODE: EXPR INDICATE THE TYPE OF WHEELCHAIR/SCOOTER USED: CODE: EXPR BLADDER AND BOWEL: H350. BLADDER CONTINENCE (3-DAY ASSESSMENT PERIOD): Always continent (no documented incontinence) CODE: 0 H400. BOWEL CONTINENCE (3-DAY ASSESSMENT PERIOD): Always continent CODE: 0 SIGNATURE PANEL: The following modified sections: 1. [id number] Admission Performance, 1. [id number] Admission Performance, 1. [id number] Admission Performance, 1. MY3064i Admission Performance, 1. [id number] Admission Performance, 1. NH0422e Admission Performance, 1. ST3085e Admission Performance, 1. [id number] Admission Performance , 1. [id number] Admission Performance, H350. Bladder Continence (3-day assessment period), H400. Bowel C ontinence (3-day assessment period) were [electronically] signed by Sera Real C.N.AJesus on SatApr 112019 14:48:09 T-0600 (Central Standard Time)
--- NOTE | 2019-04-23 03:13 | DS ---
Date of Discharge: 04/22/2019 History: Patient was seen for followup this morning. Denied any complaints, lying in bed, not in di stress. Physical Examination: Vital Signs: Reviewed. HEENT: Unremarkable. Lungs: Clear to auscultation. Heart: Normal. Abdomen: Soft, bowel sounds normal. No guarding, rigidity, tenderness, or distention. Extremities: Trace leg edema. Discharge Medications And Instructions: 1.Continue all prior home medications. 2.Take Xarelto 10 mg 1 tablet p.o. daily for 2 weeks. 3.Tylenol with Codeine No. 3 one tablet p.o. 4 times a day as needed for pain. Prescription given fo r 20 tablets. Discharge Diagnoses: 1.Anemia due to acute blood loss. 2.Constipation. 3.Hypothyroidism, postsurgical. 4.Gastroesophageal reflux disease. 5.Diverticulosis. 6.Osteoarthritis at multiple sites. 7.Osteoporosis. 8.Primary insomnia. 9.Hyperlipidemia. Hospital Course: This is an 78-year-old very pleasant female patient who had hip replacement surgery done in [place], was brought to our rehab floor for inpatient rehab therapy. Dr. Vega was consu lted from rehab floor, who provided rehab therapy and the patient's medications were continued. She was given DVT prophylaxis using Xarelto 10 mg p.o. daily, which she has tolerated very well. Hemoglo bin remained stable, she did not have any need for blood transfusion. She did have constipation prob yuval and that was managed with stool softener, laxatives, and Dulcolax rectal suppository on a p.r.n. basis. Pain was under good control with medications. Her graciela were removed past week on Saturday. Overall, she is doing very well and today she was determined stable for discharge from rehab point o f view. Medically, she is stable for discharge. Upon admission, white count 8.4, hemoglobin 9.9, pl atelets 248. Sodium 139, potassium 4.3, chloride 108, bicarb 27, BUN 7, creatinine 0.61, glucose 85, magnesium 2.4. CELSA/MODL Voice ID: [id number] Report ID: [id number]
== END 2019-04-22 14:00 | disposition home or self-care (01) | DRG 554 ==
LOC: 5TH 15:46
PROVIDERS: ADMIT Internal Medicine; ATTEND Internal Medicine
DX: M16.11 Unilateral primary osteoarthritis, right hip (principal); D62 Acute posthemorrhagic anemia; E89.0 Postprocedural hypothyroidism; E78.5 Hyperlipidemia, unspecified; K21.9 Gastro-esophageal reflux disease without esophagitis; K57.90 Diverticulosis of intestine, part unspecified, without perforation or abscess without bleeding; M81.0 Age-related osteoporosis without current pathological fracture; F51.01 Primary insomnia; R60.0 Localized edema; K59.00 Constipation, unspecified; K58.9 Irritable bowel syndrome, unspecified; J30.1 Allergic rhinitis due to pollen; L60.0 Ingrowing nail; Z85.850 Personal history of malignant neoplasm of thyroid
CPT/HCPCS: 36415; 80048; 81001; 82040; 83735; 84134; 85025; 87086; 87088; 93970; 97110; 97116; 97161; 97167; 97530; 97542; J1650